=== PATIENT | female | born 1930 | race African-American/Black ===

== ENCOUNTER 2017-05-23 13:04 | Inpatient (IN) | payer MEDICARE, OTHER ==
[~2017-05-23] VITALS: Ht 157.5 cm; Wt 77.6 kg
[~2017-05-23 13:04] MED LIST: AMLO5TAB4 PO; FURO-152 PO; LEVO175T7 PO; METO50TA5 PO; MONT10TA21 PO; MULT-1146 PO; RIVA20TA PO
[2017-05-23 14:29] LABS: BASOPHILS % 1.4 % (0.0-2.0); EOSINOPHILS % 5.5 % (0.0-5.0); HEMATOCRIT. 31.6 % (36.0-48.0); HEMOGLOBIN. 10.3 g/dL (12.0-16.0); LYMPHOCYTES % 23.6 % (20.0-50.0); MEAN CORPUSCULAR HEMOGLOBIN 30.5 pg (28.0-32.0); MEAN CORPUSCULAR VOLUME 93.7 fL (81.0-99.0); MEAN PLATELET VOLUME 9.7 fl (7.4-10.4); MONOCYTES % 8.6 % (2.0-8.0); NEUTROPHILS % 60.9 % (40.0-76.0); PLATELET 171 x1000/uL (130-400); RED BLOOD CELL COUNT 3.37 mill/uL (4.2-5.4); RED CELL DISTRIBUTION WIDTH 16.2 % (11.6-14.6)
[2017-05-23 14:30] LABS: INR 1.1
[2017-05-23 14:33] LABS: CARBON DIOXIDE 25 mEq/L (21-32); CHLORIDE 106 mEq/L (98-107)
[2017-05-23 14:35] LABS: TROPONIN I < 0.02 ng/mL (0.00-0.04)
[2017-05-23] MEDS ORDERED: FUROSEMIDE 20MG/2ML VIAL IVP ONE (17:15)
[2017-05-23] MEDS ORDERED: ASPIRIN 81MG TABLET PO ONE (17:15)
[2017-05-23 17:38] LABS: BG BASE EXCESS -1.1 mmol/L (-2.0-2.0); BG CARBOXYHEMOGLOBIN 0.2 % (0.5-1.5); BG DEOXYHEMOGLOBIN 3.1 % (0.0-5.0); BG FRACTION INSPIRED OXYGEN 28; BG HCO3 ACT 24.5 mmol/L (22.0-26.0); BG METHEMOGLOBIN 0.3 % (0.0-1.5); BG OXYGEN SATURATION 96.9 % (92.0-98.5); BG OXYHEMOGLOBIN 96.4 % (94.0-97.0); BG PCO2 44.6 mmHg (35.0-45.0); BG PH 7.357 (7.350-7.450); BG PO2 98.5 mmHg (75.0-100.0); BG SAMPLE SITE RIGHT RADIAL; BG TOTAL HEMOGLOBIN 10.7 g/dL (12.0-18.0); BG VENT MODE NASAL CANNULA
[2017-05-23 22:00] VITALS: BP 152/80
[2017-05-23 23:37] VITALS: BP 152/80
[2017-05-24] VITALS: BP 144/61
[2017-05-24] MEDS ORDERED: DOCUSATE SODIUM 100MG CAPSULE PO PRN (00:15)
[2017-05-24] MEDS ORDERED: MAGNESIUM/ALUMINUM HYDROXIDE/SIMETHICONE 30ML UDC PO PRN (00:15)
[2017-05-24] MEDS ORDERED: IPRATROPIUM/ALBUTEROL 0.5-3(2.5)MG/3ML NEB INH PRN (00:15)
[2017-05-24] MEDS ORDERED: DIPHENHYDRAMINE 50MG/ML VIAL IV PRN (00:15)
[2017-05-24] MEDS ORDERED: CLONIDINE 0.1MG TABLET PO PRN (00:15)
[2017-05-24] MEDS ORDERED: NA PHOS,M-B/NA PHOS,DI-BA ENEMA 118ML PR PRN (00:15)
[2017-05-24] MEDS ORDERED: ACETAMINOPHEN 325MG TABLET PO PRN (00:15)
[2017-05-24] MEDS ORDERED: ACETAMINOPHEN 650MG SUPP PR PRN (00:15)
[2017-05-24] MEDS ORDERED: ONDANSETRON HCL 4MG/2ML VIAL IV PRN (00:15)
[2017-05-24] MEDS ORDERED: GUAIFENESIN 200MG/10ML SUGAR FREE UDC PO PRN (00:15)
[2017-05-24] MEDS ORDERED: ENOXAPARIN 40MG/0.4ML SYR SUBCUT SCH (00:15)
[2017-05-24] MEDS ORDERED: ACETAMINOPHEN 650MG/20.3ML UDC GT PRN (00:15)
[2017-05-24] MEDS: IPRATROPIUM/ALBUTEROL 0.5-3(2.5)MG/3ML NEB HHN SCH ×6 (00:48→20:53)
[2017-05-24 04:00] VITALS: BP 122/69
[2017-05-24] MEDS: SODIUM CHLORIDE 0.9% INJ 3ML FLUSH IVF SCH ×3 (05:13→21:50)
[2017-05-24 07:18] LABS: CREATINE KINASE 115 IU/L (26-192); TROPONIN I < 0.02 ng/mL (0.00-0.04)
[2017-05-24 08:00] VITALS: BP 143/52
[2017-05-24] MEDS: ENOXAPARIN 30MG/0.3ML SYR SUBCUT SCH ×2 (09:00→21:56)
[2017-05-24] MEDS: FUROSEMIDE 40MG/4ML VIAL IV SCH ×2 (09:29→21:50)
[2017-05-24] MEDS ORDERED: PNEUMOCOCCAL 23-VAL P-SAC VAC 0.5 ML IM ONE (11:15)
[2017-05-24 12:07] VITALS: BP 124/41
[2017-05-24] MEDS: HYDROCODONE/ACETAMINOPHEN 5/325MG TABLET PO PRN (15:18)
[2017-05-24 16:27] VITALS: BP 113/52
[2017-05-24 17:05] LABS: CREATINE KINASE 116 IU/L (26-192); TROPONIN I < 0.02 ng/mL (0.00-0.04)
[2017-05-24 18:55] LABS: CLARITY URINE CLEAR (CLEAR); COLOR URINE YELLOW (YELLOW); GLUCOSE URINE NEGATIVE (NEGATIVE); KETONES URINE NEGATIVE (NEGATIVE); LEUKOCYTE ESTERASE URINE NEGATIVE (NEGATIVE); NITRITE URINE NEGATIVE (NEGATIVE); OCCULT BLOOD URINE NEGATIVE (NEGATIVE); PH URINE 5.5 (4.5-8.0); PROTEIN URINE NEGATIVE (NEGATIVE); SPECIFIC GRAVITY URINE 1.009 (1.005-1.030); UROBILINOGEN URINE 0.2 E.U./dL (0.2-1.0)
[2017-05-24 19:08] LABS: *AMPHETAMINES SCREEN URINE NEGATIVE (NEGATIVE); *BARBITURATES SCREEN URINE NEGATIVE (NEGATIVE); *BENZODIAZEPINES SCREEN URINE NEGATIVE (NEGATIVE); *COCAINE SCREEN URINE NEGATIVE (NEGATIVE); CANNABINOID URINE SCREEN NEGATIVE (NEGATIVE); METHADONE URINE SCREEN NEGATIVE (NEGATIVE); OPIATES URINE SCREEN NEGATIVE (NEGATIVE); PHENCYCLIDINE URINE SCREEN NEGATIVE (NEGATIVE)
[2017-05-24 20:00] VITALS: BP 91/50
[2017-05-24 20:13] LABS: BASOPHILS % 0.9 % (0.0-2.0); EOSINOPHILS % 1.1 % (0.0-5.0); HEMATOCRIT. 29.5 % (36.0-48.0); HEMOGLOBIN. 9.6 g/dL (12.0-16.0); MEAN CORPUSCULAR HEMOGLOBIN 30.4 pg (28.0-32.0); MEAN CORPUSCULAR VOLUME 92.8 fL (81.0-99.0); MEAN PLATELET VOLUME 10.3 fl (7.4-10.4); MONOCYTES % 13.1 % (2.0-8.0); NEUTROPHILS % 73.9 % (40.0-76.0); PLATELET 137 x1000/uL (130-400); RED BLOOD CELL COUNT 3.18 mill/uL (4.2-5.4); RED CELL DISTRIBUTION WIDTH 16.5 % (11.6-14.6)
[2017-05-24 23:26] LABS: BASOPHILS % 0.8 % (0.0-2.0); EOSINOPHILS % 0.5 % (0.0-5.0); HEMATOCRIT. 28.1 % (36.0-48.0); HEMOGLOBIN. 9.3 g/dL (12.0-16.0); LYMPHOCYTES % 12.1 % (20.0-50.0); MEAN CORPUSCULAR HEMOGLOBIN 30.6 pg (28.0-32.0); MEAN CORPUSCULAR VOLUME 92.6 fL (81.0-99.0); MEAN PLATELET VOLUME 10.2 fl (7.4-10.4); MONOCYTES % 8.4 % (2.0-8.0); NEUTROPHILS % 78.2 % (40.0-76.0); PLATELET 146 x1000/uL (130-400); RED BLOOD CELL COUNT 3.03 mill/uL (4.2-5.4); RED CELL DISTRIBUTION WIDTH 16.2 % (11.6-14.6)
[2017-05-24 23:39] LABS: CARBON DIOXIDE 25 mEq/L (21-32); CHLORIDE 100 mEq/L (98-107)
[2017-05-25] VITALS: BP 105/43
[2017-05-25] MEDS: IPRATROPIUM/ALBUTEROL 0.5-3(2.5)MG/3ML NEB HHN SCH ×6 (00:01→20:48)
[2017-05-25 04:00] VITALS: BP 105/31
[2017-05-25] MEDS: SODIUM CHLORIDE 0.9% INJ 3ML FLUSH IVF SCH ×3 (05:17→22:03)
[2017-05-25 08:00] VITALS: BP 155/85
[2017-05-25] MEDS: FUROSEMIDE 40MG/4ML VIAL IV SCH (08:54)
[2017-05-25] MEDS: ENOXAPARIN 30MG/0.3ML SYR SUBCUT SCH (08:55)
[2017-05-25 12:00] VITALS: BP 130/53
[2017-05-25] MEDS: COLCHICINE 0.6MG TABLET PO SCH ×2 (14:05→17:24)
[2017-05-25 15:40] LABS: BASOPHILS % 0.4 % (0.0-2.0); EOSINOPHILS % 0.4 % (0.0-5.0); HEMATOCRIT. 30.5 % (36.0-48.0); HEMOGLOBIN. 10.1 g/dL (12.0-16.0); LYMPHOCYTES % 12.4 % (20.0-50.0); MEAN CORPUSCULAR HEMOGLOBIN 30.3 pg (28.0-32.0); MEAN CORPUSCULAR VOLUME 91.7 fL (81.0-99.0); MEAN PLATELET VOLUME 10.1 fl (7.4-10.4); MONOCYTES % 12.9 % (2.0-8.0); NEUTROPHILS % 73.9 % (40.0-76.0); PLATELET 147 x1000/uL (130-400); RED BLOOD CELL COUNT 3.33 mill/uL (4.2-5.4); RED CELL DISTRIBUTION WIDTH 16.5 % (11.6-14.6)
[2017-05-25 16:00] VITALS: BP 120/62
[2017-05-25] MEDS ORDERED: RIVAROXABAN 20 MG TABLET PO SCH (18:45)
[2017-05-25] MEDS ORDERED: AMLODIPINE 5MG TABLET PO SCH (18:45)
[2017-05-25] MEDS ORDERED: LEVOTHYROXINE SODIUM 175MCG TABLET PO SCH (19:00)
[2017-05-25 20:00] VITALS: BP 134/65
[2017-05-25] MEDS: METOPROLOL TARTRATE 50MG TABLET PO SCH (22:02)
[2017-05-25] MEDS: MONTELUKAST SODIUM 10MG TABLET PO SCH (22:03)
[2017-05-25] MEDS: HYDROCODONE/ACETAMINOPHEN 5/325MG TABLET PO PRN (23:40)
[2017-05-26] VITALS: BP 101/37
[2017-05-26] MEDS: IPRATROPIUM/ALBUTEROL 0.5-3(2.5)MG/3ML NEB HHN SCH ×6 (00:59→20:44)
[2017-05-26 04:00] VITALS: BP 104/50
[2017-05-26] MEDS: SODIUM CHLORIDE 0.9% INJ 3ML FLUSH IVF SCH ×3 (06:40→21:27)
[2017-05-26 06:56] LABS: BASOPHILS % 0.9 % (0.0-2.0); EOSINOPHILS % 1.8 % (0.0-5.0); HEMATOCRIT. 29.9 % (36.0-48.0); HEMOGLOBIN. 9.9 g/dL (12.0-16.0); LYMPHOCYTES % 19.9 % (20.0-50.0); MEAN CORPUSCULAR HEMOGLOBIN 30.4 pg (28.0-32.0); MEAN CORPUSCULAR VOLUME 92.1 fL (81.0-99.0); MEAN PLATELET VOLUME 10.2 fl (7.4-10.4); MONOCYTES % 14.2 % (2.0-8.0); NEUTROPHILS % 63.2 % (40.0-76.0); PLATELET 140 x1000/uL (130-400); RED BLOOD CELL COUNT 3.25 mill/uL (4.2-5.4); RED CELL DISTRIBUTION WIDTH 16.6 % (11.6-14.6)
[2017-05-26 07:41] LABS: CARBON DIOXIDE 26 mEq/L (21-32); CHLORIDE 98 mEq/L (98-107); PHOSPHORUS 4.2 mg/dL (2.5-4.9); TOTAL IRON BINDING CAPACITY 294 ug/dL (250-450)
[2017-05-26 08:00] VITALS: BP 119/50
[2017-05-26] MEDS ORDERED: ENOXAPARIN 40MG/0.4ML SYR SUBCUT SCH (09:00)
[2017-05-26] MEDS: IRON SUCROSE COMPLEX 100 MG/5 ML ML IV SCH (09:17)
[2017-05-26] MEDS: COLCHICINE 0.6MG TABLET PO SCH (09:18)
[2017-05-26] MEDS: FAMOTIDINE 20MG TABLET PO SCH (09:19)
[2017-05-26] MEDS: METOPROLOL TARTRATE 50MG TABLET PO SCH ×2 (09:19→21:00)
[2017-05-26] MEDS ORDERED: MAGNESIUM 2 G PREMIX 50 ML IV SCH (09:30)
[2017-05-26 12:00] VITALS: BP 119/51
[2017-05-26] MEDS: HYDROCODONE/ACETAMINOPHEN 5/325MG TABLET PO PRN (15:12)
[2017-05-26 16:00] VITALS: BP 106/55
[2017-05-26] MEDS ORDERED: FUROSEMIDE 20MG TABLET PO SCH (17:00)
[2017-05-26] MEDS: RIVAROXABAN 15 MG TABLET PO SCH (17:59)
[2017-05-26 20:00] VITALS: BP 107/41
[2017-05-26] MEDS: MONTELUKAST SODIUM 10MG TABLET PO SCH (21:27)
[2017-05-27] VITALS: BP 96/48
[2017-05-27] MEDS: IPRATROPIUM/ALBUTEROL 0.5-3(2.5)MG/3ML NEB HHN SCH ×6 (00:31→20:46)
[2017-05-27 04:00] VITALS: BP 110/51
[2017-05-27 05:40] LABS: BASOPHILS % 0.9 % (0.0-2.0); EOSINOPHILS % 3.3 % (0.0-5.0); HEMATOCRIT. 28.5 % (36.0-48.0); HEMOGLOBIN. 9.4 g/dL (12.0-16.0); LYMPHOCYTES % 24.4 % (20.0-50.0); MEAN CORPUSCULAR HEMOGLOBIN 30.5 pg (28.0-32.0); MEAN CORPUSCULAR VOLUME 92.4 fL (81.0-99.0); MEAN PLATELET VOLUME 10.5 fl (7.4-10.4); MONOCYTES % 12.2 % (2.0-8.0); NEUTROPHILS % 59.2 % (40.0-76.0); PLATELET 132 x1000/uL (130-400); RED BLOOD CELL COUNT 3.09 mill/uL (4.2-5.4); RED CELL DISTRIBUTION WIDTH 16.6 % (11.6-14.6)
[2017-05-27] MEDS: SODIUM CHLORIDE 0.9% INJ 3ML FLUSH IVF SCH ×3 (06:31→20:45)
[2017-05-27 06:34] LABS: CARBON DIOXIDE 24 mEq/L (21-32); CHLORIDE 97 mEq/L (98-107); PHOSPHORUS 4.8 mg/dL (2.5-4.9)
[2017-05-27 08:00] VITALS: BP 125/56
[2017-05-27] MEDS ORDERED: SODIUM CHLORIDE 0.9% 500 ML IV ONE (09:15)
[2017-05-27] MEDS: FAMOTIDINE 20MG TABLET PO SCH (11:28)
[2017-05-27] MEDS: COLCHICINE 0.6MG TABLET PO SCH (11:29)
[2017-05-27] MEDS: METOPROLOL TARTRATE 50MG TABLET PO SCH ×2 (11:29→20:45)
[2017-05-27] MEDS: IRON SUCROSE COMPLEX 100 MG/5 ML ML IV SCH (11:33)
[2017-05-27] MEDS: METHYLPREDNISOLONE SOD SUCC 40 MG/ML VIAL IV SCH (11:34)
[2017-05-27 12:00] VITALS: BP 118/52
[2017-05-27 16:00] VITALS: BP 122/50
[2017-05-27] MEDS: RIVAROXABAN 15 MG TABLET PO SCH (17:35)
[2017-05-27 20:00] VITALS: BP 139/49
[2017-05-27] MEDS: MONTELUKAST SODIUM 10MG TABLET PO SCH (20:44)
[2017-05-28] VITALS: BP 126/46
[2017-05-28] MEDS: IPRATROPIUM/ALBUTEROL 0.5-3(2.5)MG/3ML NEB HHN SCH ×6 (00:43→21:28)
[2017-05-28 04:00] VITALS: BP 123/49
[2017-05-28] MEDS: LEVOTHYROXINE SODIUM 200MCG TABLET PO SCH ×2 (06:45→07:05)
[2017-05-28] MEDS: SODIUM CHLORIDE 0.9% INJ 3ML FLUSH IVF SCH ×3 (07:05→22:41)
[2017-05-28 07:55] LABS: BASOPHILS % 0.7 % (0.0-2.0); EOSINOPHILS % 0.3 % (0.0-5.0); HEMATOCRIT. 28.2 % (36.0-48.0); HEMOGLOBIN. 9.4 g/dL (12.0-16.0); LYMPHOCYTES % 10.1 % (20.0-50.0); MEAN CORPUSCULAR HEMOGLOBIN 30.8 pg (28.0-32.0); MEAN CORPUSCULAR VOLUME 92.6 fL (81.0-99.0); MONOCYTES % 5.2 % (2.0-8.0); NEUTROPHILS % 83.7 % (40.0-76.0); PLATELET 162 x1000/uL (130-400); RED BLOOD CELL COUNT 3.05 mill/uL (4.2-5.4); RED CELL DISTRIBUTION WIDTH 16.2 % (11.6-14.6)
[2017-05-28 08:11] VITALS: BP 143/78
[2017-05-28] MEDS: IRON SUCROSE COMPLEX 100 MG/5 ML ML IV SCH (08:20)
[2017-05-28] MEDS: METHYLPREDNISOLONE SOD SUCC 40 MG/ML VIAL IV SCH ×3 (08:20→22:39)
[2017-05-28] MEDS: COLCHICINE 0.6MG TABLET PO SCH (08:20)
[2017-05-28] MEDS: FAMOTIDINE 20MG TABLET PO SCH (08:20)
[2017-05-28] MEDS: METOPROLOL TARTRATE 50MG TABLET PO SCH ×2 (08:21→22:40)
[2017-05-28 08:40] LABS: PHOSPHORUS 3.4 mg/dL (2.5-4.9)
[2017-05-28 12:00] VITALS: BP 133/74
[2017-05-28 16:00] VITALS: BP 119/59
[2017-05-28] MEDS: RIVAROXABAN 15 MG TABLET PO SCH (16:42)
[2017-05-28 19:12] LABS: ANTI-NUCLEAR ANTIBODIES DIRECT Negative (Negative)
[2017-05-28 20:00] VITALS: BP 125/56
[2017-05-28] MEDS: MONTELUKAST SODIUM 10MG TABLET PO SCH (22:40)
[2017-05-29] VITALS: BP 124/43
[2017-05-29] MEDS: IPRATROPIUM/ALBUTEROL 0.5-3(2.5)MG/3ML NEB HHN SCH ×4 (01:22→12:35)
[2017-05-29 04:00] VITALS: BP 155/58
[2017-05-29] MEDS: LEVOTHYROXINE SODIUM 200MCG TABLET PO SCH (06:35)
[2017-05-29] MEDS: SODIUM CHLORIDE 0.9% INJ 3ML FLUSH IVF SCH ×2 (06:35→14:00)
[2017-05-29] MEDS: METHYLPREDNISOLONE SOD SUCC 40 MG/ML VIAL IV SCH (06:35)
[2017-05-29 08:00] VITALS: BP 127/52
[2017-05-29] MEDS: COLCHICINE 0.6MG TABLET PO SCH (09:33)
[2017-05-29] MEDS: METOPROLOL TARTRATE 50MG TABLET PO SCH (09:33)
[2017-05-29] MEDS: FAMOTIDINE 20MG TABLET PO SCH (09:34)
[2017-05-29 12:00] VITALS: BP 122/52
[2017-05-29 13:58] VITALS: BP 118/65
[2017-05-30 13:09] LABS: ANGIOTENSION CONVERTING ENZYME 37 U/L (14-82); ANTI-MYELOPEROXIDASE AB < 9.0 U/mL (0.0-9.0); ANTI-PROTEINASE 3 ABS < 3.5 U/mL (0.0-3.5)
[2017-06-01 13:12] LABS: ATYPICAL P-ANCA <1:20 titer (Neg:<1:20); CYTOPLASMIC C-ANCA <1:20 titer (Neg:<1:20); PERINUCLEAR P-ANCA <1:20 titer (Neg:<1:20)
== END 2017-05-29 15:10 | disposition home or self-care (01) | DRG 291 ==
LOC: ER 15:40 → 5WST 17:14 → SUPCPDRO 19:09 → ENRESERV 21:09
PROVIDERS: ADMIT Family Medicine; ATTEND Family Medicine
DX: I13.0 Hypertensive heart and chronic kidney disease with heart failure and stage 1 through stage 4 chronic kidney disease, or unspecified chronic kidney disease (principal); J96.00 Acute respiratory failure, unspecified whether with hypoxia or hypercapnia; N17.9 Acute kidney failure, unspecified; J44.9 Chronic obstructive pulmonary disease, unspecified; E83.42 Hypomagnesemia; I27.2 Other secondary pulmonary hypertension; I50.33 Acute on chronic diastolic (congestive) heart failure; I48.2 Chronic atrial fibrillation; E03.9 Hypothyroidism, unspecified; D50.9 Iron deficiency anemia, unspecified; E66.9 Obesity, unspecified; I73.9 Peripheral vascular disease, unspecified; M06.9 Rheumatoid arthritis, unspecified; E05.90 Thyrotoxicosis, unspecified without thyrotoxic crisis or storm; M10.9 Gout, unspecified; M17.0 Bilateral primary osteoarthritis of knee; N18.9 Chronic kidney disease, unspecified; Z68.31 Body mass index [BMI] 31.0-31.9, adult; Z79.899 Other long term (current) drug therapy; Z79.01 Long term (current) use of anticoagulants; Z74.01 Bed confinement status; Z95.0 Presence of cardiac pacemaker; Z98.42 Cataract extraction status, left eye; Z98.41 Cataract extraction status, right eye; Z87.891 Personal history of nicotine dependence
CPT/HCPCS: 36415; 36600; 71010; 76770; 80048; 80053; 80305; 81003; 82164; 82375; 82550; 82805; 83520; 83540; 83550; 83735; 83880; 84100; 84443; 84484; 84550; 85025; 85610; 85651; 86038; 86140; 86256; 86431; 93005; 93306; 93970; 94640; 94664; 97162; 97530; 99285; A6261; J1650; J1940; J2920; J3475; J7040; J7620

== ENCOUNTER 2018-02-13 15:19 | Emergency (ER) | payer MEDICARE, OTHER ==
[~2018-02-13] VITALS: Ht 152.4 cm; Wt 72.0 kg
[~2018-02-13 15:19] MED LIST changes: +METO-539 PO; -METO50TA5 PO
[2018-02-13 16:21] LABS: HEMATOCRIT. 30.9 % (36.0-48.0); HEMOGLOBIN. 10.5 g/dL (12.0-16.0); MEAN CORPUSCULAR HEMOGLOBIN 35.6 pg (28.0-32.0); MEAN CORPUSCULAR VOLUME 104.8 fL (81.0-99.0); MEAN PLATELET VOLUME 9.4 fl (7.4-10.4); PLATELET 128 x1000/uL (130-400); RED BLOOD CELL COUNT 2.95 mill/uL (4.2-5.4); RED CELL DISTRIBUTION WIDTH 16.3 % (11.6-14.6)
[2018-02-13 16:28] LABS: PROTHROMBIN TIME 10.8 sec (9.4-11.6)
[2018-02-13 16:29] LABS: CHLORIDE 107 mEq/L (98-107)
[2018-02-13 16:40] LABS: PLATELET ESTIMATE SLIGHTLY DECREASED
[2018-02-13 16:57] LABS: CLARITY URINE CLOUDY (CLEAR); COLOR URINE YELLOW (YELLOW); KETONES URINE NEGATIVE (NEGATIVE); LEUKOCYTE ESTERASE URINE NEGATIVE (NEGATIVE); NITRITE URINE NEGATIVE (NEGATIVE); OCCULT BLOOD URINE NEGATIVE (NEGATIVE); PROTEIN URINE NEGATIVE (NEGATIVE); UROBILINOGEN URINE 0.2 E.U./dL (0.2-1.0)
[2018-02-13] MEDS ORDERED: DIPHENHYDRAMINE 50MG/ML VIAL IV ONE (17:30)
[2018-02-13 19:54] VITALS: BP 128/75
== END 2018-02-13 20:01 | disposition home or self-care (01) ==
LOC: ER 17:10
DX: R60.0 Localized edema (principal); L29.2 Pruritus vulvae; I11.0 Hypertensive heart disease with heart failure; I50.9 Heart failure, unspecified; J44.9 Chronic obstructive pulmonary disease, unspecified; E05.90 Thyrotoxicosis, unspecified without thyrotoxic crisis or storm; I25.10 Atherosclerotic heart disease of native coronary artery without angina pectoris; R06.02 Shortness of breath
CPT/HCPCS: 36415; 80053; 81003; 83880; 84484; 85025; 85610; 93970; 96374; 99285; J1200; J7030

== ENCOUNTER 2018-06-19 14:38 | Emergency (ER) | payer MEDICARE, OTHER ==
[~2018-06-19] VITALS: Ht 152.4 cm; Wt 59.0 kg
[2018-06-19] MEDS ORDERED: SODIUM CHLORIDE 0.9% 1,000 ML IV ONE (15:32)
[2018-06-19 16:47] LABS: CHLORIDE 109 mEq/L (98-107)
[2018-06-19 16:57] LABS: BASOPHILS % 0.9 % (0.0-2.0); EOSINOPHILS % 4.2 % (0.0-5.0); HEMATOCRIT. 28.6 % (36.0-48.0); HEMOGLOBIN. 9.6 g/dL (12.0-16.0); LYMPHOCYTES % 21.6 % (20.0-50.0); MEAN CORPUSCULAR HEMOGLOBIN 34.5 pg (28.0-32.0); MEAN CORPUSCULAR VOLUME 102.8 fL (81.0-99.0); MEAN PLATELET VOLUME 10.3 fl (7.4-10.4); NEUTROPHILS % 61.3 % (40.0-76.0); PLATELET 113 x1000/uL (130-400); RED BLOOD CELL COUNT 2.78 mill/uL (4.2-5.4); RED CELL DISTRIBUTION WIDTH 14.8 % (11.6-14.6)
[2018-06-19 17:01] LABS: INR 1.4; PROTHROMBIN TIME 14.4 sec (9.1-11.1)
[2018-06-19 18:56] VITALS: BP 127/44
== END 2018-06-19 21:56 | disposition home or self-care (01) ==
LOC: ER 14:38
DX: R19.7 Diarrhea, unspecified (principal); K62.5 Hemorrhage of anus and rectum; I10 Essential (primary) hypertension
CPT/HCPCS: 36415; 80053; 85025; 85610; 96360; 96361; 99285; J7030

== ENCOUNTER 2018-10-11 11:38 | Inpatient (IN) | payer MEDICARE, OTHER ==
[~2018-10-11] VITALS: Ht 152.4 cm; Wt 54.4 kg
[2018-10-11] MEDS ORDERED: VANCOMYCIN 1 G PREMIX 200 ML IV ONE (12:00)
[2018-10-11] MEDS ORDERED: PIPERACILLIN/TAZ 3.375G PREMIX 50 ML IV ONE (12:00)
[2018-10-11 13:26] LABS: CHLORIDE 106 mEq/L (98-107)
[2018-10-11 13:31] LABS: INR 1.6; PARTIAL THROMBOPLASTIN TIME 67.2 sec (23.4-31.0); PROTHROMBIN TIME 15.5 sec (9.1-11.1)
[2018-10-11 13:32] LABS: EOSINOPHILS % 4.2 % (0.0-5.0); HEMATOCRIT. 23.9 % (36.0-48.0); HEMOGLOBIN. 7.9 g/dL (12.0-16.0); LYMPHOCYTES % 21.4 % (20.0-50.0); MEAN CORPUSCULAR HEMOGLOBIN 34.1 pg (28.0-32.0); MEAN CORPUSCULAR VOLUME 102.7 fL (81.0-99.0); MEAN PLATELET VOLUME 8.4 fl (7.4-10.4); MONOCYTES % 2.9 % (2.0-8.0); NEUTROPHILS % 70.5 % (40.0-76.0); PLATELET 218 x1000/uL (130-400); RED BLOOD CELL COUNT 2.33 mill/uL (4.2-5.4); RED CELL DISTRIBUTION WIDTH 16.9 % (11.6-14.6)
[2018-10-11] MEDS ORDERED: POTASSIUM CHLORIDE 20MEQ TABLET SR PO ONE (14:00)
[2018-10-11 14:35] VITALS: BP 111/66
[2018-10-11 16:00] VITALS: BP 99/52
[2018-10-11] MEDS ORDERED: ALLO100T PO (16:03)
[2018-10-11] MEDS ORDERED: DOCUSATE SODIUM 100MG CAPSULE PO PRN (16:15)
[2018-10-11] MEDS ORDERED: NA PHOS,M-B/NA PHOS,DI-BA ENEMA 118ML PR PRN (16:15)
[2018-10-11] MEDS ORDERED: LORAZEPAM 2MG/ML CPJ IV PRN (16:15)
[2018-10-11] MEDS ORDERED: ACETAMINOPHEN 325MG TABLET PO PRN (16:15)
[2018-10-11] MEDS ORDERED: HYDROMORPHONE HCL/PF 2MG/ML CPJ IV PRN (16:15)
[2018-10-11] MEDS ORDERED: ONDANSETRON HCL 4MG/2ML INJ IV PRN (16:15)
[2018-10-11] MEDS ORDERED: CLONIDINE 0.1MG TABLET PO PRN (16:15)
[2018-10-11] MEDS ORDERED: IPRATROPIUM/ALBUTEROL 0.5-3(2.5)MG/3ML NEB INH PRN (16:15)
[2018-10-11] MEDS ORDERED: MAGNESIUM/ALUMINUM HYDROXIDE/SIMETHICONE 30ML UDC PO PRN (16:15)
[2018-10-11] MEDS ORDERED: GUAIFENESIN 200MG/10ML SUGAR FREE UDC PO PRN (16:15)
[2018-10-11] MEDS ORDERED: HYDROCODONE/ACETAMINOPHEN 5/325MG TABLET PO PRN (16:15)
[2018-10-11] MEDS ORDERED: DIPHENHYDRAMINE 50MG/ML VIAL IV PRN (16:15)
[2018-10-11] MEDS ORDERED: VANCOMYCIN 1 G PREMIX 200 ML IV NR ×2 (17:00→18:00)
[2018-10-11 17:58] LABS: CHLORIDE 107 mEq/L (98-107)
[2018-10-11] MEDS: SODIUM CHLORIDE 0.45% 1,000 ML IV SCH (17:58)
[2018-10-11 20:00] VITALS: BP 112/45
[2018-10-11] MEDS: METOPROLOL TARTRATE 25MG TABLET PO SCH (20:41)
[2018-10-11] MEDS ORDERED: ENOXAPARIN 30MG/0.3ML SYR SUBCUT SCH (21:00)
[2018-10-11 23:48] LABS: CLARITY URINE CLOUDY (CLEAR); COLOR URINE DARK YELLOW (YELLOW); KETONES URINE TRACE (NEGATIVE); LEUKOCYTE ESTERASE URINE 2+ (NEGATIVE); NITRITE URINE NEGATIVE (NEGATIVE); OCCULT BLOOD URINE NEGATIVE (NEGATIVE); PROTEIN URINE 1+ (NEGATIVE); SPECIFIC GRAVITY URINE 1.025 (1.005-1.030)
[2018-10-12] VITALS (13 sets, daily range): BP systolic 95–128; BP diastolic 35–48
[2018-10-12 07:53] LABS: EOSINOPHILS % 3.9 % (0.0-5.0); LYMPHOCYTES % 17.3 % (20.0-50.0); MEAN CORPUSCULAR HEMOGLOBIN 34.6 pg (28.0-32.0); MEAN CORPUSCULAR VOLUME 105.3 fL (81.0-99.0); MONOCYTES % 5.8 % (2.0-8.0); PLATELET 170 x1000/uL (130-400); RED BLOOD CELL COUNT 1.91 mill/uL (4.2-5.4); RED CELL DISTRIBUTION WIDTH 16.8 % (11.6-14.6)
[2018-10-12 08:12] LABS: HEMATOCRIT. 20.1 % (36.0-48.0); HEMOGLOBIN. 6.6 g/dL (12.0-16.0)
[2018-10-12 08:30] LABS: CHLORIDE 107 mEq/L (98-107)
[2018-10-12 08:45] LABS: LDL CHOLESTEROL 127 mg/dL (5-100)
[2018-10-12 08:46] LABS: T4 FREE 1.93 ng/dL (0.76-1.46)
[2018-10-12 08:47] LABS: HDL CHOLESTEROL 24 mg/dL (40-59)
[2018-10-12] MEDS: METOPROLOL TARTRATE 25MG TABLET PO SCH ×2 (08:48→20:19)
[2018-10-12] MEDS ORDERED: ASPIRIN 81MG EC TABLET PO SCH (09:00)
[2018-10-12] MEDS ORDERED: VANCOMYCIN 500 MG PREMIX 100 ML IV SCH ×2 (12:00→21:00)
[2018-10-12 13:15] LABS: BASOPHILS % 1.2 % (0.0-2.0); EOSINOPHILS % 2.9 % (0.0-5.0); LYMPHOCYTES % 16.8 % (20.0-50.0); MEAN CORPUSCULAR HEMOGLOBIN 34.2 pg (28.0-32.0); MEAN CORPUSCULAR VOLUME 101.9 fL (81.0-99.0); MEAN PLATELET VOLUME 8.3 fl (7.4-10.4); MONOCYTES % 8.1 % (2.0-8.0); PLATELET 188 x1000/uL (130-400); RED BLOOD CELL COUNT 1.79 mill/uL (4.2-5.4); RED CELL DISTRIBUTION WIDTH 16.6 % (11.6-14.6)
[2018-10-12 13:36] LABS: HEMOGLOBIN. 6.1 g/dL (12.0-16.0)
[2018-10-12 13:37] LABS: HEMATOCRIT. 18.3 % (36.0-48.0)
[2018-10-12] MEDS ORDERED: LIDOCAINE HCL/EPINEPHRINE 1%-EPI 1:100,000 20 ML VIAL INFIL SCH (15:30)
[2018-10-12] MEDS ORDERED: SODIUM HYPOCHLORITE 0.125% 473ML SOLUTION TOP SCH (16:00)
[2018-10-12] MEDS: SODIUM CHLORIDE 0.45% 1,000 ML IV SCH (16:05)
[2018-10-12] MEDS ORDERED: SODIUM HYPOCHLORITE (0.25%) 480ML SOLUTION (HALF STRENGTH) TOP SCH (20:00)
[2018-10-12] MEDS: SODIUM HYPOCHLORITE 0.125% 473ML SOLUTION TOP SCH (20:20)
[2018-10-12] MEDS ORDERED: LEVOFLOXACIN 500MG PREMIX 100 ML IV NR (22:00)
[2018-10-13] VITALS: BP 123/48
[2018-10-13 00:50] VITALS: BP 120/52
[2018-10-13 02:15] LABS: HEMATOCRIT 27.2 % (36.0-48.0); HEMOGLOBIN 9.1 g/dL (12.0-16.0)
[2018-10-13 04:00] VITALS: BP 124/54
[2018-10-13 08:00] VITALS: BP 111/48
[2018-10-13] MEDS: SODIUM HYPOCHLORITE 0.125% 473ML SOLUTION TOP SCH (09:00)
[2018-10-13] MEDS: METOPROLOL TARTRATE 25MG TABLET PO SCH ×2 (09:00→21:05)
[2018-10-13 09:43] LABS: BASOPHILS % 0.6 % (0.0-2.0); HEMATOCRIT. 26.4 % (36.0-48.0); LYMPHOCYTES % 25.9 % (20.0-50.0); MEAN CORPUSCULAR HEMOGLOBIN 32.2 pg (28.0-32.0); MEAN CORPUSCULAR VOLUME 94.8 fL (81.0-99.0); MEAN PLATELET VOLUME 8.3 fl (7.4-10.4); MONOCYTES % 8.7 % (2.0-8.0); NEUTROPHILS % 60.8 % (40.0-76.0); PLATELET 165 x1000/uL (130-400); RED BLOOD CELL COUNT 2.78 mill/uL (4.2-5.4); RED CELL DISTRIBUTION WIDTH 19.8 % (11.6-14.6)
[2018-10-13 09:51] LABS: CHLORIDE 104 mEq/L (98-107)
[2018-10-13] MEDS ORDERED: KCL 20MEQ/100ML PREMIX 100 ML IV NR (11:00)
[2018-10-13 12:00] VITALS: BP 126/51
[2018-10-13] MEDS: VANCOMYCIN 500 MG PREMIX 100 ML IV SCH (16:27)
[2018-10-13] MEDS: SODIUM CHLORIDE 0.45% 1,000 ML IV SCH (16:27)
[2018-10-13 20:00] VITALS: BP 121/70
[2018-10-13] MEDS: LEVOFLOXACIN 250MG PREMIX 50 ML IV SCH (21:06)
[2018-10-14] VITALS: BP 124/52
[2018-10-14] MEDS: VANCOMYCIN 500 MG PREMIX 100 ML IV SCH ×2 (00:16→13:59)
[2018-10-14 04:00] VITALS: BP 103/56
[2018-10-14 06:33] LABS: CHLORIDE 109 mEq/L (98-107)
[2018-10-14 06:42] LABS: TOTAL IRON BINDING CAPACITY 133 ug/dL (250-450)
[2018-10-14 06:47] LABS: BASOPHILS % 1.2 % (0.0-2.0); EOSINOPHILS % 5.2 % (0.0-5.0); HEMATOCRIT. 29.5 % (36.0-48.0); LYMPHOCYTES % 33.4 % (20.0-50.0); MEAN CORPUSCULAR HEMOGLOBIN 32.3 pg (28.0-32.0); MEAN CORPUSCULAR VOLUME 95.3 fL (81.0-99.0); MEAN PLATELET VOLUME 8.4 fl (7.4-10.4); MONOCYTES % 9.3 % (2.0-8.0); NEUTROPHILS % 50.9 % (40.0-76.0); PLATELET 205 x1000/uL (130-400); RED CELL DISTRIBUTION WIDTH 19.4 % (11.6-14.6)
[2018-10-14 08:00] VITALS: BP 120/81
[2018-10-14] MEDS: SODIUM HYPOCHLORITE 0.125% 473ML SOLUTION TOP SCH (09:00)
[2018-10-14] MEDS: METOPROLOL TARTRATE 25MG TABLET PO SCH ×2 (09:30→21:00)
[2018-10-14] MEDS: PANTOPRAZOLE SODIUM 40 MG/VIAL IV SCH (09:30)
[2018-10-14 12:00] VITALS: BP 119/47
[2018-10-14] MEDS: SODIUM CHLORIDE 0.45% 1,000 ML IV SCH (14:16)
[2018-10-14 16:00] VITALS: BP 135/55
[2018-10-14 20:00] VITALS: BP 107/47
[2018-10-14] MEDS: LEVOFLOXACIN 250MG PREMIX 50 ML IV SCH (22:07)
[2018-10-15] VITALS: BP 113/48
[2018-10-15] MEDS: VANCOMYCIN 500 MG PREMIX 100 ML IV SCH (00:06)
[2018-10-15 04:00] VITALS: BP 120/62
[2018-10-15 08:00] VITALS: BP 142/52
[2018-10-15] MEDS: SODIUM HYPOCHLORITE 0.125% 473ML SOLUTION TOP SCH (11:15)
[2018-10-15] MEDS: FOLIC ACID 1MG TABLET PO SCH (11:22)
[2018-10-15] MEDS: PANTOPRAZOLE SODIUM 40 MG/VIAL IV SCH (11:23)
[2018-10-15] MEDS: METOPROLOL TARTRATE 25MG TABLET PO SCH ×2 (11:23→21:00)
[2018-10-15] MEDS: CYANOCOBALAMIN 1000MCG/ML VIAL IM SCH (11:23)
[2018-10-15 12:00] VITALS: BP 97/38
[2018-10-15 15:08] LABS: HEMATOCRIT 29.2 % (36.0-48.0); HEMOGLOBIN 9.8 g/dL (12.0-16.0); MEAN CORPUSCULAR HEMOGLOBIN 32.5 pg (28.0-32.0); MEAN CORPUSCULAR VOLUME 96.9 fL (81.0-99.0); PLATELET 202 x1000/uL (130-400); RED BLOOD CELL COUNT 3.01 mill/uL (4.2-5.4); RED CELL DISTRIBUTION WIDTH 19.4 % (11.6-14.6)
[2018-10-15 16:00] VITALS: BP 118/48
[2018-10-15] MEDS: VANCOMYCIN 750 MG PREMIX 150 ML IV SCH (17:42)
[2018-10-15] MEDS: SODIUM CHLORIDE 0.45% 1,000 ML IV SCH (17:43)
[2018-10-15 20:00] VITALS: BP 106/50
[2018-10-15] MEDS: LEVOFLOXACIN 250MG PREMIX 50 ML IV SCH (21:22)
[2018-10-16] VITALS: BP 120/60
[2018-10-16 04:00] VITALS: BP 146/44
[2018-10-16 08:00] VITALS: BP 139/52
[2018-10-16] MEDS: PANTOPRAZOLE SODIUM 40 MG/VIAL IV SCH (09:56)
[2018-10-16] MEDS: FOLIC ACID 1MG TABLET PO SCH (09:56)
[2018-10-16] MEDS: CYANOCOBALAMIN 1000MCG/ML VIAL IM SCH (09:56)
[2018-10-16] MEDS: METOPROLOL TARTRATE 25MG TABLET PO SCH ×2 (09:56→21:56)
[2018-10-16 12:00] VITALS: BP 119/49
[2018-10-16] MEDS: VANCOMYCIN 750 MG PREMIX 150 ML IV SCH (12:24)
[2018-10-16] MEDS: SODIUM CHLORIDE 0.45% 1,000 ML IV SCH (17:32)
[2018-10-16] MEDS: SODIUM HYPOCHLORITE 0.125% 473ML SOLUTION TOP SCH (17:33)
[2018-10-16 20:00] VITALS: BP 125/51
[2018-10-16] MEDS: LEVOFLOXACIN 250MG PREMIX 50 ML IV SCH (21:56)
[2018-10-17] VITALS: BP 118/56
[2018-10-17 04:00] VITALS: BP 125/44
[2018-10-17] MEDS: VANCOMYCIN 750 MG PREMIX 150 ML IV SCH (06:46)
[2018-10-17 08:00] VITALS: BP 121/70
[2018-10-17] MEDS ORDERED: ASPIRIN 81MG TABLET PO SCH (09:00)
[2018-10-17 09:49] LABS: CHLORIDE 110 mEq/L (98-107)
[2018-10-17 09:51] LABS: HEMATOCRIT 27.2 % (36.0-48.0)
[2018-10-17] MEDS: PANTOPRAZOLE SODIUM 40 MG/VIAL IV SCH (10:18)
[2018-10-17] MEDS: FOLIC ACID 1MG TABLET PO SCH (10:19)
[2018-10-17] MEDS: METOPROLOL TARTRATE 25MG TABLET PO SCH (10:19)
[2018-10-17] MEDS: CYANOCOBALAMIN 1000MCG/ML VIAL IM SCH (10:19)
[2018-10-17] MEDS: SODIUM HYPOCHLORITE 0.125% 473ML SOLUTION TOP SCH (10:20)
[2018-10-17 12:00] VITALS: BP 118/74
[2018-10-17 16:00] VITALS: BP 116/41
[2018-10-17 17:58] VITALS: BP 116/41
[2018-10-18] MEDS ORDERED: LEVOFLOXACIN 250MG TABLET PO SCH (21:00)
== END 2018-10-17 18:53 | disposition home health service (06) | DRG 570 ==
LOC: ER 11:38 → 7WST 12:46 → EDBEDREQ 12:55 → ENRESERV 13:21
PROVIDERS: ADMIT Internal Medicine; ATTEND Internal Medicine
PROC: 30233N1 Transfusion of Nonautologous Red Blood Cells into Peripheral Vein, Percutaneous Approach (ICD-10-PCS; principal; 2018-10-12)
PROC: 4B02XSZ Measurement of Cardiac Pacemaker, External Approach (ICD-10-PCS; 2018-10-12)
PROC: 0QB10ZZ Excision of Sacrum, Open Approach (ICD-10-PCS; 2018-10-14)
PROC: 0JB90ZZ Excision of Buttock Subcutaneous Tissue and Fascia, Open Approach (ICD-10-PCS; 2018-10-14)
PROC: 0JBL0ZZ Excision of Right Upper Leg Subcutaneous Tissue and Fascia, Open Approach (ICD-10-PCS; 2018-10-14)
PROC: 0JB90ZZ Excision of Buttock Subcutaneous Tissue and Fascia, Open Approach (ICD-10-PCS; 2018-10-14)
DX: L89.154 Pressure ulcer of sacral region, stage 4 (principal); G93.41 Metabolic encephalopathy; E46 Unspecified protein-calorie malnutrition; N39.0 Urinary tract infection, site not specified; D68.9 Coagulation defect, unspecified; I13.0 Hypertensive heart and chronic kidney disease with heart failure and stage 1 through stage 4 chronic kidney disease, or unspecified chronic kidney disease; L89.323 Pressure ulcer of left buttock, stage 3; L89.313 Pressure ulcer of right buttock, stage 3; L89.213 Pressure ulcer of right hip, stage 3; R07.89 Other chest pain; E87.6 Hypokalemia; I48.0 Paroxysmal atrial fibrillation; D64.9 Anemia, unspecified; E03.9 Hypothyroidism, unspecified; I50.9 Heart failure, unspecified; I49.3 Ventricular premature depolarization; E53.8 Deficiency of other specified B group vitamins; E88.09 Other disorders of plasma-protein metabolism, not elsewhere classified; N18.9 Chronic kidney disease, unspecified; I25.10 Atherosclerotic heart disease of native coronary artery without angina pectoris; H91.90 Unspecified hearing loss, unspecified ear; F03.90 Unspecified dementia, unspecified severity, without behavioral disturbance, psychotic disturbance, mood disturbance, and anxiety; J44.9 Chronic obstructive pulmonary disease, unspecified; J32.9 Chronic sinusitis, unspecified; Z98.42 Cataract extraction status, left eye; Z95.0 Presence of cardiac pacemaker; Z98.41 Cataract extraction status, right eye; Z87.891 Personal history of nicotine dependence; Z91.81 History of falling; Z68.23 Body mass index [BMI] 23.0-23.9, adult; Z79.899 Other long term (current) drug therapy
CPT/HCPCS: 36415; 71045; 80048; 80061; 80202; 82270; 82607; 82728; 82746; 83540; 83550; 83605; 83735; 84134; 84145; 84439; 84443; 84484; 85014; 85018; 85027; 86850; 86900; 86920; 87070; 87076; 93005; 93306; 93970; 96365; 99285; A6261; C1893; C9113; J1650; J1956; J2543; J3370; J3420; J3480; J3490; J7040; J7050; P9016

== ENCOUNTER 2018-12-22 16:51 | Inpatient (IN) | payer MEDICARE, OTHER ==
[~2018-12-22] VITALS: Ht 157.5 cm; Wt 51.7 kg
[~2018-12-22 16:51] MED LIST changes: +ALLO100T PO; -AMLO5TAB4 PO
[2018-12-22] MEDS ORDERED: ONDANSETRON HCL 4MG/2ML INJ IV STA (18:11)
[2018-12-22] MEDS ORDERED: SODIUM CHLORIDE 0.9% 500 ML IV ONE (18:15)
[2018-12-22] MEDS ORDERED: ASPIRIN 81MG TABLET PO ONE (18:15)
[2018-12-22 20:00] LABS: BASOPHILS % 2.5 % (0.0-2.0); EOSINOPHILS % 8.3 % (0.0-5.0); HEMATOCRIT. 23.4 % (36.0-48.0); HEMOGLOBIN. 7.8 g/dL (12.0-16.0); LYMPHOCYTES % 33.8 % (20.0-50.0); MEAN CORPUSCULAR HEMOGLOBIN 33.6 pg (28.0-32.0); MEAN CORPUSCULAR VOLUME 101.7 fL (81.0-99.0); MEAN PLATELET VOLUME 9.9 fl (7.4-10.4); MONOCYTES % 7.5 % (2.0-8.0); NEUTROPHILS % 47.9 % (40.0-76.0); PLATELET 200 x1000/uL (130-400); RED CELL DISTRIBUTION WIDTH 17.3 % (11.6-14.6)
[2018-12-22 20:06] LABS: CHLORIDE 116 mEq/L (98-107)
[2018-12-22 20:11] LABS: CLARITY URINE CLEAR (CLEAR); COLOR URINE YELLOW (YELLOW); KETONES URINE NEGATIVE (NEGATIVE); LEUKOCYTE ESTERASE URINE NEGATIVE (NEGATIVE); NITRITE URINE NEGATIVE (NEGATIVE); OCCULT BLOOD URINE NEGATIVE (NEGATIVE); PH URINE 5.5 (4.5-8.0); PROTEIN URINE NEGATIVE (NEGATIVE); SPECIFIC GRAVITY URINE 1.016 (1.005-1.030)
[2018-12-23] VITALS (11 sets, daily range): BP systolic 103–136; BP diastolic 29–54
[2018-12-23] MEDS ORDERED: POTASSIUM CHLORIDE 20MEQ TABLET SR PO NR ×2 (00:15→04:00)
[2018-12-23] MEDS: MULTIVITAMINS,THER W-MINERALS TABLET PO SCH (08:37)
[2018-12-23] MEDS: ALLOPURINOL 100 MG TABLET PO SCH ×2 (08:37→17:06)
[2018-12-23] MEDS: LEVOTHYROXINE SODIUM 175MCG TABLET PO SCH (08:37)
[2018-12-23] MEDS: METOPROLOL TARTRATE 50MG TABLET PO SCH ×2 (08:37→21:00)
[2018-12-23 09:13] LABS: BASOPHILS % 1.6 % (0.0-2.0); EOSINOPHILS % 12.9 % (0.0-5.0); LYMPHOCYTES % 35.2 % (20.0-50.0); MEAN CORPUSCULAR HEMOGLOBIN 33.6 pg (28.0-32.0); MEAN CORPUSCULAR VOLUME 100.5 fL (81.0-99.0); MEAN PLATELET VOLUME 9.7 fl (7.4-10.4); MONOCYTES % 9.2 % (2.0-8.0); NEUTROPHILS % 41.1 % (40.0-76.0); PLATELET 178 x1000/uL (130-400); RED BLOOD CELL COUNT 2.09 mill/uL (4.2-5.4); RED CELL DISTRIBUTION WIDTH 17.3 % (11.6-14.6)
[2018-12-23 09:20] LABS: CHLORIDE 123 mEq/L (98-107)
[2018-12-23 19:01] LABS: HEMATOCRIT 30.6 % (36.0-48.0)
[2018-12-23 19:14] LABS: HDL CHOLESTEROL 51 mg/dL (40-59); LDL CHOLESTEROL 128 mg/dL (5-100)
[2018-12-23 19:15] LABS: CREATINE KINASE MB FRACTION < 1.0 ng/mL (0.5-3.6); T4 FREE 1.72 ng/dL (0.76-1.46)
[2018-12-23 19:16] LABS: CREATINE KINASE 24 IU/L (26-192)
[2018-12-23] MEDS: MONTELUKAST SODIUM 10MG TABLET PO SCH (21:29)
[2018-12-24] VITALS: BP 144/38
[2018-12-24 04:00] VITALS: BP 133/30
[2018-12-24] MEDS: LEVOTHYROXINE SODIUM 175MCG TABLET PO SCH (06:46)
[2018-12-24 07:52] VITALS: BP 139/39
[2018-12-24] MEDS: MULTIVITAMINS,THER W-MINERALS TABLET PO SCH (08:24)
[2018-12-24] MEDS: METOPROLOL TARTRATE 50MG TABLET PO SCH ×2 (08:25→21:00)
[2018-12-24] MEDS: ALLOPURINOL 100 MG TABLET PO SCH ×2 (08:26→16:42)
[2018-12-24 10:34] LABS: CREATINE KINASE 18 IU/L (26-192)
[2018-12-24 10:35] LABS: CREATINE KINASE MB FRACTION < 1.0 ng/mL (0.5-3.6)
[2018-12-24 12:00] VITALS: BP 126/45
[2018-12-24 16:06] LABS: TOTAL IRON BINDING CAPACITY 107 ug/dL (250-450)
[2018-12-24 16:15] VITALS: BP 119/39
[2018-12-24 16:45] LABS: VITAMIN B12 SERUM 365 pg/mL (211-911)
[2018-12-24] MEDS ORDERED: MAGNESIUM 2 G PREMIX 50 ML IV SCH (17:00)
[2018-12-24 19:50] LABS: CREATINE KINASE 19 IU/L (26-192)
[2018-12-24 19:51] LABS: CREATINE KINASE MB FRACTION < 1.0 ng/mL (0.5-3.6)
[2018-12-24 20:00] VITALS: BP 102/40
[2018-12-24] MEDS: MONTELUKAST SODIUM 10MG TABLET PO SCH (21:46)
[2018-12-25] VITALS: BP 104/41
[2018-12-25 04:00] VITALS: BP 133/35
[2018-12-25] MEDS: LEVOTHYROXINE SODIUM 175MCG TABLET PO SCH (07:57)
[2018-12-25 08:00] VITALS: BP 140/43
[2018-12-25] MEDS: MULTIVITAMINS,THER W-MINERALS TABLET PO SCH (09:28)
[2018-12-25] MEDS: METOPROLOL TARTRATE 50MG TABLET PO SCH (09:28)
[2018-12-25] MEDS: ALLOPURINOL 100 MG TABLET PO SCH ×2 (09:28→17:42)
[2018-12-25 12:00] VITALS: BP 122/53
[2018-12-25] MEDS ORDERED: FERROUS SULFATE 325MG TABLET PO SCH (12:30)
[2018-12-25 13:25] LABS: BASOPHILS % 1.3 % (0.0-2.0); EOSINOPHILS % 9.4 % (0.0-5.0); HEMATOCRIT. 27.9 % (36.0-48.0); HEMOGLOBIN. 9.3 g/dL (12.0-16.0); LYMPHOCYTES % 25.3 % (20.0-50.0); MEAN CORPUSCULAR HEMOGLOBIN 32.4 pg (28.0-32.0); MEAN CORPUSCULAR VOLUME 96.9 fL (81.0-99.0); MEAN PLATELET VOLUME 9.8 fl (7.4-10.4); MONOCYTES % 6.9 % (2.0-8.0); NEUTROPHILS % 57.1 % (40.0-76.0); PLATELET 178 x1000/uL (130-400); RED BLOOD CELL COUNT 2.88 mill/uL (4.2-5.4); RED CELL DISTRIBUTION WIDTH 20.8 % (11.6-14.6)
[2018-12-25 13:28] LABS: CHLORIDE 114 mEq/L (98-107)
[2018-12-25 16:00] VITALS: BP 104/78
[2018-12-25] MEDS ORDERED: CLONIDINE 0.1MG TABLET PO PRN (16:00)
[2018-12-25] MEDS ORDERED: NA PHOS,M-B/NA PHOS,DI-BA ENEMA 118ML PR PRN (16:00)
[2018-12-25] MEDS ORDERED: MEDICATION NOT ON FORMULARY EA (Rivaroxaban (Xarelto) 20 MG) PO SCH (16:00)
[2018-12-25] MEDS ORDERED: ACETAMINOPHEN 325MG TABLET PO PRN (16:00)
[2018-12-25] MEDS ORDERED: DIPHENHYDRAMINE 50MG/ML VIAL IV PRN (16:00)
[2018-12-25] MEDS ORDERED: DOCUSATE SODIUM 100MG CAPSULE PO PRN (16:00)
[2018-12-25] MEDS ORDERED: GUAIFENESIN 200MG/10ML SUGAR FREE UDC PO PRN (16:00)
[2018-12-25] MEDS ORDERED: ACETAMINOPHEN 650MG SUPP PR PRN (16:00)
[2018-12-25] MEDS ORDERED: HYDROCODONE/ACETAMINOPHEN 5/325MG TABLET PO PRN (16:00)
[2018-12-25] MEDS ORDERED: MAGNESIUM/ALUMINUM HYDROXIDE/SIMETHICONE 30ML UDC PO PRN (16:00)
[2018-12-25] MEDS ORDERED: ACETAMINOPHEN 650MG/20.3ML UDC GT PRN (16:00)
[2018-12-25] MEDS ORDERED: ONDANSETRON HCL 4MG/2ML INJ IV PRN (16:00)
[2018-12-25] MEDS ORDERED: RIVAROXABAN 10 MG TABLET PO SCH (17:00)
[2018-12-25 18:41] VITALS: BP 104/78
[2018-12-25] MEDS ORDERED: SODIUM CHLORIDE 0.9% INJ 3ML FLUSH IVF SCH (22:00)
== END 2018-12-25 20:00 | disposition home health service (06) | DRG 313 ==
LOC: ER 16:51 → EDBEDREQ 18:18 → 7WST 20:32 → EDBEDREQTM 20:35 → EDBEDREQ 20:35 → ENRESERV 21:37
PROVIDERS: ADMIT Family Medicine; ATTEND Family Medicine
PROC: 30233N1 Transfusion of Nonautologous Red Blood Cells into Peripheral Vein, Percutaneous Approach (ICD-10-PCS; principal; 2018-12-23)
DX: R07.89 Other chest pain (principal); L89.154 Pressure ulcer of sacral region, stage 4; D50.9 Iron deficiency anemia, unspecified; D12.4 Benign neoplasm of descending colon; E53.8 Deficiency of other specified B group vitamins; E03.9 Hypothyroidism, unspecified; I10 Essential (primary) hypertension; I48.0 Paroxysmal atrial fibrillation; M10.9 Gout, unspecified; L89.319 Pressure ulcer of right buttock, unspecified stage; K64.4 Residual hemorrhoidal skin tags; K64.8 Other hemorrhoids; M24.412 Recurrent dislocation, left shoulder; Z95.0 Presence of cardiac pacemaker; I49.5 Sick sinus syndrome; Z74.01 Bed confinement status
CPT/HCPCS: 36415; 36430; 71045; 80048; 80061; 82270; 82550; 82553; 82607; 82962; 83036; 83540; 83550; 83605; 83735; 83880; 84134; 84439; 84443; 84484; 85014; 85018; 85379; 86850; 86900; 86920; 93005; 93306; 93970; 96360; 97162; 99285; A6261; J2405; J3475; J7040; J7050; P9016

== ENCOUNTER 2019-03-28 15:52 | Inpatient (IN) | payer MEDICARE, OTHER ==
[~2019-03-28] VITALS: Ht 162.6 cm; Wt 44.9 kg
[2019-03-28] MEDS ORDERED: ACETAMINOPHEN 325MG TABLET PO STA (16:20)
[2019-03-28] MEDS ORDERED: PIPERACILLIN/TAZ 3.375G PREMIX 50 ML IV ONE (16:30)
[2019-03-28] MEDS ORDERED: VANCOMYCIN 1 G PREMIX 200 ML IV ONE (16:30)
[2019-03-28] MEDS ORDERED: SODIUM CHLORIDE 0.9% 1000ML BAG (SEPSIS BOLUS) IV ONE (16:30)
[2019-03-28 16:42] LABS: BASOPHILS % 0.9 % (0.0-2.0); EOSINOPHILS % 3.3 % (0.0-5.0); HEMATOCRIT. 24.4 % (36.0-48.0); HEMOGLOBIN. 8.1 g/dL (12.0-16.0); LYMPHOCYTES % 25.3 % (20.0-50.0); MEAN CORPUSCULAR HEMOGLOBIN 35.1 pg (28.0-32.0); MEAN CORPUSCULAR VOLUME 105.7 fL (81.0-99.0); MONOCYTES % 7.3 % (2.0-8.0); NEUTROPHILS % 63.2 % (40.0-76.0); PLATELET 204 x1000/uL (130-400); RED BLOOD CELL COUNT 2.31 mill/uL (4.2-5.4); RED CELL DISTRIBUTION WIDTH 17.4 % (11.6-14.6)
[2019-03-28 16:43] LABS: CHLORIDE 115 mEq/L (98-107)
[2019-03-28] MEDS ORDERED: CLONIDINE 0.1MG TABLET PO PRN (20:15)
[2019-03-28] MEDS ORDERED: DOCUSATE SODIUM 100MG CAPSULE PO PRN (20:15)
[2019-03-28] MEDS ORDERED: ONDANSETRON HCL 4MG/2ML INJ IV PRN (20:15)
[2019-03-28] MEDS ORDERED: LEVOFLOXACIN 500MG PREMIX 100 ML IV SCH (20:15)
[2019-03-28] MEDS ORDERED: GUAIFENESIN 200MG/10ML SUGAR FREE UDC PO PRN (20:15)
[2019-03-28] MEDS ORDERED: ACETAMINOPHEN 325MG TABLET PO PRN (20:15)
[2019-03-28] MEDS: SODIUM CHLORIDE 0.45% 1,000 ML IV SCH (20:46)
[2019-03-28] MEDS ORDERED: LEVOFLOXACIN 500MG PREMIX 100 ML IV NR (20:48)
[2019-03-29] VITALS: BP 137/39
[2019-03-29 04:00] VITALS: BP 117/43
[2019-03-29 06:59] LABS: BASOPHILS % 1.3 % (0.0-2.0); EOSINOPHILS % 10.1 % (0.0-5.0); HEMATOCRIT. 21.1 % (36.0-48.0); HEMOGLOBIN. 7.1 g/dL (12.0-16.0); LYMPHOCYTES % 27.2 % (20.0-50.0); MEAN CORPUSCULAR HEMOGLOBIN 35.7 pg (28.0-32.0); MEAN CORPUSCULAR VOLUME 106.3 fL (81.0-99.0); MONOCYTES % 7.8 % (2.0-8.0); NEUTROPHILS % 53.6 % (40.0-76.0); PLATELET 150 x1000/uL (130-400); RED BLOOD CELL COUNT 1.98 mill/uL (4.2-5.4); RED CELL DISTRIBUTION WIDTH 17.1 % (11.6-14.6)
[2019-03-29 07:27] LABS: CHLORIDE 118 mEq/L (98-107)
[2019-03-29 08:00] VITALS: BP 106/37
[2019-03-29] MEDS ORDERED: POTASSIUM CHLORIDE 20MEQ TABLET SR PO NR (08:45)
[2019-03-29] MEDS: ALLOPURINOL 100 MG TABLET PO SCH ×2 (09:08→17:21)
[2019-03-29] MEDS: LEVOTHYROXINE SODIUM 175MCG TABLET PO SCH (09:09)
[2019-03-29] MEDS: MULTIVITAMINS,THER W-MINERALS TABLET PO SCH (09:09)
[2019-03-29] MEDS: VANCOMYCIN 750 MG PREMIX 150 ML IV SCH (10:09)
[2019-03-29 12:00] VITALS: BP 110/41
[2019-03-29] MEDS: SODIUM CHLORIDE 0.45% 1,000 ML IV SCH ×2 (13:27→13:28)
[2019-03-29 16:00] VITALS: BP 112/49
[2019-03-29 16:12] LABS: HEMATOCRIT 23.6 % (36.0-48.0); HEMOGLOBIN 7.6 g/dL (12.0-16.0)
[2019-03-29] MEDS: RIVAROXABAN 15 MG TABLET PO SCH (17:21)
[2019-03-29 20:00] VITALS: BP 125/53
[2019-03-29] MEDS: LEVOFLOXACIN 250MG PREMIX 50 ML IV SCH (20:40)
[2019-03-30] VITALS: BP 124/51
[2019-03-30 04:00] VITALS: BP 119/57
[2019-03-30] MEDS: VANCOMYCIN 750 MG PREMIX 150 ML IV SCH ×2 (04:17→21:51)
[2019-03-30 08:00] VITALS: BP 118/43
[2019-03-30] MEDS: MULTIVITAMINS,THER W-MINERALS TABLET PO SCH (08:40)
[2019-03-30] MEDS: ALLOPURINOL 100 MG TABLET PO SCH ×2 (08:40→17:13)
[2019-03-30] MEDS: LEVOTHYROXINE SODIUM 175MCG TABLET PO SCH (10:50)
[2019-03-30 11:53] VITALS: BP 108/49
[2019-03-30 15:41] LABS: BASOPHILS % 1.1 % (0.0-2.0); EOSINOPHILS % 8.6 % (0.0-5.0); HEMATOCRIT. 23.5 % (36.0-48.0); HEMOGLOBIN. 7.6 g/dL (12.0-16.0); LYMPHOCYTES % 29.4 % (20.0-50.0); MEAN CORPUSCULAR HEMOGLOBIN 35.2 pg (28.0-32.0); MEAN CORPUSCULAR VOLUME 108.6 fL (81.0-99.0); MEAN PLATELET VOLUME 9.2 fl (7.4-10.4); MONOCYTES % 7.1 % (2.0-8.0); NEUTROPHILS % 53.8 % (40.0-76.0); PLATELET 176 x1000/uL (130-400); RED BLOOD CELL COUNT 2.17 mill/uL (4.2-5.4); RED CELL DISTRIBUTION WIDTH 17.1 % (11.6-14.6)
[2019-03-30 15:49] LABS: CHLORIDE 114 mEq/L (98-107)
[2019-03-30 15:59] VITALS: BP 96/31
[2019-03-30] MEDS: RIVAROXABAN 15 MG TABLET PO SCH (17:13)
[2019-03-30 20:00] VITALS: BP 124/53
[2019-03-30] MEDS: SODIUM CHLORIDE 0.45% 1,000 ML IV SCH (20:37)
[2019-03-30] MEDS: LEVOFLOXACIN 250MG PREMIX 50 ML IV SCH (20:37)
[2019-03-31] VITALS (7 sets, daily range): BP systolic 109–162; BP diastolic 47–76
[2019-03-31] MEDS: ALLOPURINOL 100 MG TABLET PO SCH ×2 (08:53→16:53)
[2019-03-31] MEDS: MULTIVITAMINS,THER W-MINERALS TABLET PO SCH (08:53)
[2019-03-31] MEDS: LEVOTHYROXINE SODIUM 175MCG TABLET PO SCH (10:04)
[2019-03-31] MEDS: RIVAROXABAN 15 MG TABLET PO SCH (16:53)
[2019-03-31] MEDS ORDERED: ATORVASTATIN CALCIUM 20MG TABLET PO SCH (21:00)
[2019-04-01] VITALS: BP 124/76
[2019-04-01 04:00] VITALS: BP 127/72
[2019-04-01 08:00] VITALS: BP 122/38
[2019-04-01] MEDS: MULTIVITAMINS,THER W-MINERALS TABLET PO SCH (09:00)
[2019-04-01] MEDS: LEVOTHYROXINE SODIUM 175MCG TABLET PO SCH (09:00)
[2019-04-01] MEDS: ALLOPURINOL 100 MG TABLET PO SCH ×2 (09:00→16:43)
[2019-04-01 12:00] VITALS: BP 109/47
[2019-04-01 16:00] VITALS: BP 146/56
[2019-04-01] MEDS: RIVAROXABAN 15 MG TABLET PO SCH (16:43)
[2019-04-01] MEDS ORDERED: SULFAMETHOXAZOLE/TRIMETHOPRIM 800/160MG TABLET PO SCH (17:00)
== END 2019-04-01 19:08 | DRG 871 ==
LOC: ER 15:52 → 8WST 18:48 → EDBEDREQ 18:59 → EDBEDREQSVC 18:59 → SUPCPDRO 20:11 → ENRESERV 22:53
PROVIDERS: ADMIT Hospitalist; ATTEND Hospitalist
DX: A41.9 Sepsis, unspecified organism (principal); L89.154 Pressure ulcer of sacral region, stage 4; D68.59 Other primary thrombophilia; E46 Unspecified protein-calorie malnutrition; Z68.1 Body mass index [BMI] 19.9 or less, adult; L89.619 Pressure ulcer of right heel, unspecified stage; I48.91 Unspecified atrial fibrillation; I49.5 Sick sinus syndrome; J44.9 Chronic obstructive pulmonary disease, unspecified; M10.9 Gout, unspecified; E03.9 Hypothyroidism, unspecified; M19.90 Unspecified osteoarthritis, unspecified site; D64.9 Anemia, unspecified; I10 Essential (primary) hypertension; R50.9 Fever, unspecified; I25.10 Atherosclerotic heart disease of native coronary artery without angina pectoris; Z79.899 Other long term (current) drug therapy; Z95.0 Presence of cardiac pacemaker; I25.2 Old myocardial infarction; Z74.01 Bed confinement status; Z99.3 Dependence on wheelchair
CPT/HCPCS: 36415; 71045; 73630; 80202; 83605; 83735; 84134; 84145; 84484; 85014; 85018; 86850; 86900; 86920; 93005; 93970; 96365; 96367; 96368; 99285; J1956; J2543; J3370; J7030

== ENCOUNTER 2019-04-10 15:12 | Inpatient (IN) | payer MEDICARE, OTHER ==
[~2019-04-10] VITALS: Ht 157.5 cm; Wt 47.2 kg
[2019-04-10 16:08] LABS: MEAN CORPUSCULAR VOLUME 106.8 fL (81.0-99.0); MEAN PLATELET VOLUME 9.3 fl (7.4-10.4); PLATELET 193 x1000/uL (130-400); RED BLOOD CELL COUNT 1.92 mill/uL (4.2-5.4)
[2019-04-10 16:12] LABS: HEMOGLOBIN. 6.9 g/dL (12.0-16.0)
[2019-04-10 16:13] LABS: CHLORIDE 112 mEq/L (98-107); HEMATOCRIT. 20.5 % (36.0-48.0)
[2019-04-10 16:16] LABS: INR 1.2
[2019-04-10 17:01] LABS: PLATELET ESTIMATE NORMAL
[2019-04-10] MEDS ORDERED: ONDANSETRON HCL 4MG/2ML INJ IV PRN (18:30)
[2019-04-10] MEDS ORDERED: NITROGLYCERIN 0.4MG TABLET SL SL PRN (18:30)
[2019-04-10] MEDS ORDERED: TRAMADOL 50MG TABLET PO PRN (18:30)
[2019-04-10] MEDS ORDERED: MAGNESIUM/ALUMINUM HYDROXIDE/SIMETHICONE 30ML UDC PO PRN (18:30)
[2019-04-10] MEDS ORDERED: DIPHENHYDRAMINE 50MG/ML VIAL IV PRN (18:30)
[2019-04-10] MEDS ORDERED: DOCUSATE SODIUM 100MG CAPSULE PO PRN (18:30)
[2019-04-10] MEDS ORDERED: NA PHOS,M-B/NA PHOS,DI-BA ENEMA 118ML PR PRN (18:30)
[2019-04-10] MEDS ORDERED: CLONIDINE 0.1MG TABLET PO PRN (18:30)
[2019-04-10] MEDS ORDERED: LORAZEPAM 0.5MG TABLET PO PRN (18:30)
[2019-04-10] MEDS ORDERED: ENOXAPARIN 40MG/0.4ML SYR SUBCUT SCH (18:30)
[2019-04-10] MEDS ORDERED: GUAIFENESIN 200MG/10ML SUGAR FREE UDC PO PRN (18:30)
[2019-04-10] MEDS ORDERED: ACETAMINOPHEN 325MG TABLET PO PRN (18:30)
[2019-04-10 20:14] LABS: FOLIC ACID (FOLATE) SERUM 6.1 ng/mL (>5.38)
[2019-04-10 22:55] VITALS: BP 119/67
[2019-04-10] MEDS ORDERED: ZOLPIDEM TARTRATE 5MG TABLET PO PRN (23:00)
[2019-04-11] VITALS: BP 116/68
[2019-04-11] MEDS: METOPROLOL TARTRATE 50MG TABLET PO SCH ×3 (01:17→20:51)
[2019-04-11 04:00] VITALS: BP 114/48
[2019-04-11] MEDS: SUCRALFATE 1 G/10 ML UDC PO SCH ×4 (06:15→20:51)
[2019-04-11] MEDS: LEVOTHYROXINE SODIUM 175MCG TABLET PO SCH (06:16)
[2019-04-11] MEDS ORDERED: FUROSEMIDE 20MG TABLET PO SCH (07:15)
[2019-04-11 08:00] VITALS: BP 125/46
[2019-04-11] MEDS: PANTOPRAZOLE SODIUM 40 MG/VIAL IV SCH (09:15)
[2019-04-11] MEDS: ENOXAPARIN 30MG/0.3ML SYR SUBCUT SCH (09:15)
[2019-04-11 12:00] VITALS: BP 93/27
[2019-04-11] MEDS: SODIUM CHLORIDE 0.45% 1,000 ML IV SCH (15:52)
[2019-04-11 16:05] VITALS: BP 104/27
[2019-04-11 17:51] LABS: BASOPHILS % 1.9 % (0.0-2.0); EOSINOPHILS % 10.6 % (0.0-5.0); HEMATOCRIT. 24.5 % (36.0-48.0); HEMOGLOBIN. 8.3 g/dL (12.0-16.0); LYMPHOCYTES % 35.9 % (20.0-50.0); MEAN CORPUSCULAR HEMOGLOBIN 34.4 pg (28.0-32.0); MEAN CORPUSCULAR VOLUME 101.7 fL (81.0-99.0); MEAN PLATELET VOLUME 10.2 fl (7.4-10.4); NEUTROPHILS % 43.6 % (40.0-76.0); PLATELET 187 x1000/uL (130-400); RED BLOOD CELL COUNT 2.41 mill/uL (4.2-5.4); RED CELL DISTRIBUTION WIDTH 20.9 % (11.6-14.6)
[2019-04-11] MEDS ORDERED: SODIUM POLYSTYRENE SULFONATE 15 G/60 ML BOT PO SCH (19:30)
[2019-04-11 20:00] VITALS: BP 121/68
[2019-04-12] VITALS (7 sets, daily range): BP systolic 105–142; BP diastolic 30–60
[2019-04-12] MEDS: SODIUM CHLORIDE 0.45% 1,000 ML IV SCH (05:31)
[2019-04-12] MEDS: LEVOTHYROXINE SODIUM 175MCG TABLET PO SCH (07:53)
[2019-04-12] MEDS: SUCRALFATE 1 G/10 ML UDC PO SCH ×3 (07:54→17:41)
[2019-04-12 08:02] LABS: EOSINOPHILS % 7.1 % (0.0-5.0); HEMATOCRIT. 27.7 % (36.0-48.0); HEMOGLOBIN. 9.4 g/dL (12.0-16.0); LYMPHOCYTES % 23.8 % (20.0-50.0); MEAN CORPUSCULAR HEMOGLOBIN 34.9 pg (28.0-32.0); MEAN CORPUSCULAR VOLUME 102.2 fL (81.0-99.0); MEAN PLATELET VOLUME 10.2 fl (7.4-10.4); NEUTROPHILS % 62.1 % (40.0-76.0); PLATELET 212 x1000/uL (130-400); RED BLOOD CELL COUNT 2.71 mill/uL (4.2-5.4); RED CELL DISTRIBUTION WIDTH 20.5 % (11.6-14.6)
[2019-04-12] MEDS: ENOXAPARIN 30MG/0.3ML SYR SUBCUT SCH (08:02)
[2019-04-12] MEDS: PANTOPRAZOLE SODIUM 40 MG/VIAL IV SCH (08:03)
[2019-04-12] MEDS: METOPROLOL TARTRATE 50MG TABLET PO SCH (08:03)
[2019-04-12 08:20] LABS: CHLORIDE 110 mEq/L (98-107)
[2019-04-12] MEDS ORDERED: RIVAROXABAN 15 MG TABLET PO SCH (17:00)
[2019-04-13] MEDS ORDERED: FAMOTIDINE 20MG TABLET PO SCH (09:00)
[2019-04-13] MEDS ORDERED: FUROSEMIDE 20MG TABLET PO SCH (09:00)
== END 2019-04-12 20:50 | DRG 682 ==
LOC: ER 15:44 → 8WST 17:56 → ENRESERV 21:45
PROVIDERS: ADMIT Internal Medicine; ATTEND Internal Medicine
PROC: 30233N1 Transfusion of Nonautologous Red Blood Cells into Peripheral Vein, Percutaneous Approach (ICD-10-PCS; principal; 2019-04-10)
DX: N17.9 Acute kidney failure, unspecified (principal); L89.154 Pressure ulcer of sacral region, stage 4; E43 Unspecified severe protein-calorie malnutrition; E87.2 Acidosis; Z68.1 Body mass index [BMI] 19.9 or less, adult; D68.59 Other primary thrombophilia; E03.9 Hypothyroidism, unspecified; F03.90 Unspecified dementia, unspecified severity, without behavioral disturbance, psychotic disturbance, mood disturbance, and anxiety; I10 Essential (primary) hypertension; I48.91 Unspecified atrial fibrillation; J44.9 Chronic obstructive pulmonary disease, unspecified; D50.9 Iron deficiency anemia, unspecified; E87.5 Hyperkalemia; Z79.899 Other long term (current) drug therapy
CPT/HCPCS: 36415; 80048; 80061; 82270; 82607; 82746; 83036; 83540; 83550; 84134; 84443; 86850; 86900; 86920; 93970; 96374; 99285; C9113; J1650; P9016

== ENCOUNTER 2019-08-04 11:45 | Inpatient (IN) | payer MEDICARE, OTHER ==
[~2019-08-04] VITALS: Ht 157.5 cm; Wt 72.1 kg
[2019-08-04 12:45] LABS: BASOPHILS % 1.1 % (0.0-2.0); EOSINOPHILS % 4.8 % (0.0-5.0); HEMATOCRIT. 26.4 % (36.0-48.0); HEMOGLOBIN. 9.1 g/dL (12.0-16.0); LYMPHOCYTES % 35.3 % (20.0-50.0); MEAN CORPUSCULAR VOLUME 104.7 fL (81.0-99.0); MEAN PLATELET VOLUME 9.7 fl (7.4-10.4); MONOCYTES % 8.2 % (2.0-8.0); NEUTROPHILS % 50.6 % (40.0-76.0); PLATELET 222 x1000/uL (130-400); RED BLOOD CELL COUNT 2.53 mill/uL (4.2-5.4); RED CELL DISTRIBUTION WIDTH 14.6 % (11.6-14.6)
[2019-08-04 12:52] LABS: CHLORIDE 109 mEq/L (98-107)
[2019-08-04 12:53] LABS: PROTHROMBIN TIME 10.5 sec (9.6-11.0)
[2019-08-04] MEDS ORDERED: SODIUM CHLORIDE 0.9% 1,000 ML IV ONE (14:33)
[2019-08-04] MEDS ORDERED: ACETAMINOPHEN 325MG TABLET PO PRN (16:00)
[2019-08-04] MEDS ORDERED: MAGNESIUM/ALUMINUM HYDROXIDE/SIMETHICONE 30ML UDC PO PRN (16:00)
[2019-08-04] MEDS ORDERED: ONDANSETRON HCL 4MG/2ML INJ IV PRN (16:00)
[2019-08-04] MEDS ORDERED: IPRATROPIUM/ALBUTEROL 0.5-3(2.5)MG/3ML NEB NEB PRN (16:00)
[2019-08-04] MEDS ORDERED: CLONIDINE 0.1MG TABLET PO PRN (16:00)
[2019-08-04] MEDS ORDERED: LORAZEPAM 0.5MG TABLET PO PRN (16:00)
[2019-08-04] MEDS: PANTOPRAZOLE SODIUM 40 MG/VIAL IV SCH (18:47)
[2019-08-04] MEDS: DEXT 5%/0.45% NACL 1000ML 1,000 ML IV SCH (20:11)
[2019-08-05] VITALS (8 sets, daily range): BP systolic 125–160; BP diastolic 49–71
[2019-08-05] MEDS ORDERED: XAR15 PO (03:42)
[2019-08-05] MEDS ORDERED: FAMO-135 PO (03:47)
[2019-08-05] MEDS ORDERED: ALLO100T PO (03:47)
[2019-08-05 06:56] LABS: BASOPHILS % 1.1 % (0.0-2.0); EOSINOPHILS % 5.5 % (0.0-5.0); HEMATOCRIT. 25.6 % (36.0-48.0); HEMOGLOBIN. 8.6 g/dL (12.0-16.0); LYMPHOCYTES % 30.2 % (20.0-50.0); MEAN CORPUSCULAR HEMOGLOBIN 35.6 pg (28.0-32.0); MEAN CORPUSCULAR VOLUME 105.9 fL (81.0-99.0); MEAN PLATELET VOLUME 9.7 fl (7.4-10.4); MONOCYTES % 10.9 % (2.0-8.0); NEUTROPHILS % 52.3 % (40.0-76.0); PLATELET 203 x1000/uL (130-400); RED BLOOD CELL COUNT 2.42 mill/uL (4.2-5.4); RED CELL DISTRIBUTION WIDTH 14.5 % (11.6-14.6)
[2019-08-05 07:39] LABS: CHLORIDE 115 mEq/L (98-107)
[2019-08-05] MEDS: LEVOTHYROXINE SODIUM 175MCG TABLET PO SCH (09:40)
[2019-08-05] MEDS: METOPROLOL TARTRATE 50MG TABLET PO SCH ×2 (09:42→21:16)
[2019-08-05] MEDS: PANTOPRAZOLE SODIUM 40 MG/VIAL IV SCH (09:43)
[2019-08-05] MEDS: ALLOPURINOL 100 MG TABLET PO SCH ×2 (09:46→17:18)
[2019-08-05] MEDS ORDERED: INFLUENZA VIRUS VACCINE(AFLURIA) 0.5ML SYR IM ONE (10:00)
[2019-08-05] MEDS: DEXT 5%/0.45% NACL 1000ML 1,000 ML IV SCH (13:12)
[2019-08-05] MEDS: MONTELUKAST SODIUM 10MG TABLET PO SCH (21:14)
[2019-08-06] VITALS: BP 146/66
[2019-08-06 04:00] VITALS: BP 144/55
[2019-08-06] MEDS: DEXT 5%/0.45% NACL 1000ML 1,000 ML IV SCH ×2 (05:07→21:24)
[2019-08-06 08:00] VITALS: BP 124/58
[2019-08-06] MEDS ORDERED: PANTOPRAZOLE SODIUM 40 MG/VIAL IV SCH (09:00)
[2019-08-06] MEDS: METOPROLOL TARTRATE 50MG TABLET PO SCH ×2 (09:42→21:24)
[2019-08-06] MEDS: ALLOPURINOL 100 MG TABLET PO SCH ×2 (09:42→17:39)
[2019-08-06] MEDS: LEVOTHYROXINE SODIUM 175MCG TABLET PO SCH (09:42)
[2019-08-06 12:00] VITALS: BP 123/66
[2019-08-06 13:15] LABS: BASOPHILS % 1.6 % (0.0-2.0); HEMATOCRIT. 31.5 % (36.0-48.0); HEMOGLOBIN. 10.4 g/dL (12.0-16.0); LYMPHOCYTES % 25.9 % (20.0-50.0); MEAN CORPUSCULAR HEMOGLOBIN 35.4 pg (28.0-32.0); MEAN CORPUSCULAR VOLUME 106.9 fL (81.0-99.0); MEAN PLATELET VOLUME 9.9 fl (7.4-10.4); MONOCYTES % 9.9 % (2.0-8.0); NEUTROPHILS % 54.6 % (40.0-76.0); PLATELET 206 x1000/uL (130-400); RED BLOOD CELL COUNT 2.95 mill/uL (4.2-5.4); RED CELL DISTRIBUTION WIDTH 14.6 % (11.6-14.6)
[2019-08-06 16:00] VITALS: BP 131/78
[2019-08-06 20:00] VITALS: BP 147/60
[2019-08-06] MEDS: MONTELUKAST SODIUM 10MG TABLET PO SCH (21:24)
[2019-08-07] VITALS: BP 136/58
[2019-08-07 04:00] VITALS: BP 128/58
[2019-08-07] MEDS: LEVOTHYROXINE SODIUM 175MCG TABLET PO SCH (06:41)
[2019-08-07 08:00] VITALS: BP 148/54
[2019-08-07 08:10] LABS: CHLORIDE 112 mEq/L (98-107)
[2019-08-07] MEDS: ALLOPURINOL 100 MG TABLET PO SCH ×2 (09:09→16:54)
[2019-08-07] MEDS: METOPROLOL TARTRATE 50MG TABLET PO SCH (09:10)
[2019-08-07 10:29] LABS: BASOPHILS % 1.2 % (0.0-2.0); EOSINOPHILS % 5.1 % (0.0-5.0); HEMATOCRIT. 27.6 % (36.0-48.0); HEMOGLOBIN. 9.3 g/dL (12.0-16.0); LYMPHOCYTES % 24.1 % (20.0-50.0); MEAN CORPUSCULAR HEMOGLOBIN 35.5 pg (28.0-32.0); MEAN PLATELET VOLUME 9.9 fl (7.4-10.4); NEUTROPHILS % 60.6 % (40.0-76.0); PLATELET 236 x1000/uL (130-400); RED BLOOD CELL COUNT 2.63 mill/uL (4.2-5.4); RED CELL DISTRIBUTION WIDTH 14.2 % (11.6-14.6)
[2019-08-07 12:00] VITALS: BP 115/73
[2019-08-07] MEDS ORDERED: LORAZEPAM 2MG/ML CPJ IV PRN (12:00)
[2019-08-07 16:00] VITALS: BP 120/63
[2019-08-07 16:10] VITALS: BP 115/73
[2019-08-07] MEDS ORDERED: RIVAROXABAN 20 MG TABLET PO SCH (17:00)
== END 2019-08-07 19:21 | DRG 377 ==
LOC: ER 13:04 → 7WST 14:33 → ENRESERV 23:40
PROVIDERS: ADMIT Hospitalist; ATTEND Hospitalist
DX: K92.2 Gastrointestinal hemorrhage, unspecified (principal); L89.154 Pressure ulcer of sacral region, stage 4; D62 Acute posthemorrhagic anemia; D68.59 Other primary thrombophilia; I48.91 Unspecified atrial fibrillation; I50.9 Heart failure, unspecified; I11.0 Hypertensive heart disease with heart failure; E78.00 Pure hypercholesterolemia, unspecified; K21.9 Gastro-esophageal reflux disease without esophagitis; M10.9 Gout, unspecified; J44.9 Chronic obstructive pulmonary disease, unspecified; E03.9 Hypothyroidism, unspecified; I25.10 Atherosclerotic heart disease of native coronary artery without angina pectoris; Z79.01 Long term (current) use of anticoagulants; Z79.899 Other long term (current) drug therapy
CPT/HCPCS: 36415; 71045; 83735; 90686; 93005; 93970; 99285; A6261; C9113; J7030

== ENCOUNTER 2019-12-24 09:32 | Inpatient (IN) | payer MEDICARE, MEDICAID ==
[~2019-12-24] VITALS: Ht 157.5 cm; Wt 54.9 kg
[~2019-12-24 09:32] MED LIST changes: +FAMO-135 PO; -RIVA20TA PO; +XAR15 PO
[2019-12-24 10:34] LABS: HEMATOCRIT. 34.9 % (36.0-48.0); HEMOGLOBIN. 11.3 g/dL (12.0-16.0); MEAN CORPUSCULAR HEMOGLOBIN 32.4 pg (28.0-32.0); MEAN CORPUSCULAR VOLUME 100.3 fL (81.0-99.0); MEAN PLATELET VOLUME 10.1 fl (7.4-10.4); PLATELET 206 x1000/uL (130-400); RED BLOOD CELL COUNT 3.48 mill/uL (4.2-5.4); RED CELL DISTRIBUTION WIDTH 15.9 % (11.6-14.6)
[2019-12-24 10:38] LABS: CHLORIDE 118 mEq/L (98-107)
[2019-12-24 11:14] LABS: ATYPICAL LYMPHOCYTES 1; PLATELET ESTIMATE NORMAL
[2019-12-24] MEDS ORDERED: LORAZEPAM 2MG/ML CPJ IV PRN (14:30)
[2019-12-24] MEDS ORDERED: DOCUSATE SODIUM 100MG CAPSULE PO PRN (14:30)
[2019-12-24] MEDS ORDERED: HYDROMORPHONE HCL/PF 2MG/ML CPJ IV PRN (14:30)
[2019-12-24] MEDS ORDERED: GUAIFENESIN 200MG/10ML SUGAR FREE UDC PO PRN (14:30)
[2019-12-24] MEDS ORDERED: MAGNESIUM/ALUMINUM HYDROXIDE/SIMETHICONE 30ML UDC PO PRN (14:30)
[2019-12-24] MEDS ORDERED: AZITHROMYCIN 500 MG in DEXT 5% WATER 250 ML IV NR (14:30)
[2019-12-24] MEDS ORDERED: ONDANSETRON HCL 4MG/2ML INJ IV PRN (14:30)
[2019-12-24] MEDS ORDERED: CLONIDINE 0.1MG TABLET PO PRN (14:30)
[2019-12-24] MEDS ORDERED: NA PHOS,M-B/NA PHOS,DI-BA ENEMA 118ML PR PRN (14:30)
[2019-12-24] MEDS ORDERED: CEFTRIAXONE 1 G PREMIX 50 ML IV SCH (14:30)
[2019-12-24] MEDS ORDERED: ACETAMINOPHEN 325MG TABLET PO PRN (14:30)
[2019-12-24 19:20] LABS: CLARITY URINE CLOUDY (CLEAR); COLOR URINE YELLOW (YELLOW); KETONES URINE NEGATIVE (NEGATIVE); LEUKOCYTE ESTERASE URINE NEGATIVE (NEGATIVE); NITRITE URINE NEGATIVE (NEGATIVE); OCCULT BLOOD URINE NEGATIVE (NEGATIVE); PROTEIN URINE 1+ (NEGATIVE); SPECIFIC GRAVITY URINE 1.019 (1.005-1.030)
[2019-12-24] MEDS: ASCORBIC ACID 500 MG TABLET PO SCH (21:00)
[2019-12-25 06:16] LABS: HEMATOCRIT. 30.7 % (36.0-48.0); HEMOGLOBIN. 10.4 g/dL (12.0-16.0); MEAN CORPUSCULAR HEMOGLOBIN 33.4 pg (28.0-32.0); MEAN CORPUSCULAR VOLUME 98.8 fL (81.0-99.0); MEAN PLATELET VOLUME 9.8 fl (7.4-10.4); PLATELET 223 x1000/uL (130-400); RED BLOOD CELL COUNT 3.11 mill/uL (4.2-5.4); RED CELL DISTRIBUTION WIDTH 15.8 % (11.6-14.6)
[2019-12-25 06:26] LABS: CHLORIDE 119 mEq/L (98-107)
[2019-12-25 08:08] LABS: BG BASE EXCESS -8.8 mmol/L (-2.0-2.0); BG CARBOXYHEMOGLOBIN 0.3 % (0.5-1.5); BG DEOXYHEMOGLOBIN 7.5 % (0.0-5.0); BG FRACTION INSPIRED OXYGEN 32; BG HCO3 ACT 14.6 mmol/L (22.0-26.0); BG METHEMOGLOBIN 0.2 % (0.0-1.5); BG OXYGEN SATURATION 92.5 % (92.0-98.5); BG PH 7.384 (7.350-7.450); BG PO2 63.8 mmHg (75.0-100.0); BG SAMPLE SITE RIGHT BRACHIAL; BG TOTAL HEMOGLOBIN 12.1 g/dL (12.0-18.0); BG VENT MODE NASAL CANNULA
[2019-12-25 08:47] LABS: PLATELET ESTIMATE NORMAL
[2019-12-25] MEDS ORDERED: ZINC SULFATE 220 MG ( 50 ) CAPSULE PO SCH (09:00)
[2019-12-25] MEDS: ASCORBIC ACID 500 MG TABLET PO SCH (09:00)
[2019-12-25] MEDS: AZITHROMYCIN 250 MG in DEXT 5% WATER 250 ML IV SCH (16:00)
[2019-12-25] MEDS ORDERED: CEFTRIAXONE 1 G PREMIX 50 ML IV SCH (16:15)
[2019-12-25] MEDS: ZINC SULFATE 220 MG ( 50 ) CAPSULE PO SCH (16:35)
[2019-12-25 23:35] VITALS: BP 118/54
[2019-12-26] MEDS ORDERED: NITR0.4T SL (00:39)
[2019-12-26] MEDS ORDERED: TOPUD PO (00:39)
[2019-12-26] MEDS ORDERED: FOLI-43 MT (00:39)
[2019-12-26] MEDS ORDERED: RIVA20TA PO (00:39)
[2019-12-26] MEDS ORDERED: ACET-2708 MT (00:39)
[2019-12-26] MEDS ORDERED: DOCU100T MT (00:39)
[2019-12-26] MEDS ORDERED: VITAMIN B12 INJ IM (00:39)
[2019-12-26] MEDS ORDERED: MELA3TAB71 MT (00:39)
[2019-12-26] MEDS ORDERED: TOPUD MT (00:39)
[2019-12-26] MEDS ORDERED: IPRA3AMP9 HHN (00:39)
[2019-12-26] MEDS ORDERED: CLON0.1T PO (00:39)
[2019-12-26] MEDS ORDERED: FERR325T6 PO (00:39)
[2019-12-26] MEDS: CEFTRIAXONE 1 G PREMIX 50 ML IV SCH ×2 (02:06→22:18)
[2019-12-26 04:00] VITALS: BP 123/60
[2019-12-26 08:00] VITALS: BP 146/53
[2019-12-26] MEDS: ASCORBIC ACID 500 MG TABLET PO SCH ×3 (09:37→22:17)
[2019-12-26] MEDS: ZINC SULFATE 220 MG ( 50 ) CAPSULE PO SCH (09:37)
[2019-12-26] MEDS: ENOXAPARIN 30MG/0.3ML SYR SUBCUT SCH (09:38)
[2019-12-26] MEDS ORDERED: FUROSEMIDE 20MG/2ML VIAL IVP NR (11:45)
[2019-12-26 12:00] VITALS: BP 131/52
[2019-12-26] MEDS ORDERED: ALBUMIN HUMAN 25GM/100ML (25%) IV NR (13:00)
[2019-12-26 16:00] VITALS: BP 102/51
[2019-12-26] MEDS: AZITHROMYCIN 250 MG in DEXT 5% WATER 250 ML IV SCH (17:01)
[2019-12-26 17:04] LABS: COVID-19 PCR RNA DETECTED
[2019-12-26 17:07] LABS: COVID-19 PCR RNA DETECTED
[2019-12-26 20:00] VITALS: BP 79/38
[2019-12-26 20:30] VITALS: BP 106/70
[2019-12-27] VITALS (7 sets, daily range): BP systolic 75–138; BP diastolic 32–63
[2019-12-27 05:54] LABS: CHLORIDE 120 mEq/L (98-107)
[2019-12-27 06:33] LABS: HEMATOCRIT. 32.2 % (36.0-48.0); HEMOGLOBIN. 10.6 g/dL (12.0-16.0); MEAN CORPUSCULAR VOLUME 99.8 fL (81.0-99.0); MEAN PLATELET VOLUME 10.2 fl (7.4-10.4); PLATELET 256 x1000/uL (130-400); RED BLOOD CELL COUNT 3.23 mill/uL (4.2-5.4); RED CELL DISTRIBUTION WIDTH 16.4 % (11.6-14.6)
[2019-12-27] MEDS: ENOXAPARIN 30MG/0.3ML SYR SUBCUT SCH (09:21)
[2019-12-27] MEDS: ASCORBIC ACID 500 MG TABLET PO SCH ×2 (09:21→21:39)
[2019-12-27] MEDS: ZINC SULFATE 220 MG ( 50 ) CAPSULE PO SCH (09:21)
[2019-12-27 11:26] LABS: PLATELET ESTIMATE NORMAL
[2019-12-27] MEDS: AZITHROMYCIN 250 MG in DEXT 5% WATER 250 ML IV SCH ×2 (14:33→15:45)
[2019-12-27] MEDS: CEFTRIAXONE 1 G PREMIX 50 ML IV SCH ×2 (21:39→22:00)
[2019-12-28 00:26] VITALS: BP 122/48
[2019-12-28 04:00] VITALS: BP 127/41
[2019-12-28 08:00] VITALS: BP 113/60
[2019-12-28] MEDS ORDERED: LIDOCAINE HCL 1% 20ML VIAL (Pyxis) INJ ONE (08:21)
[2019-12-28] MEDS: ENOXAPARIN 30MG/0.3ML SYR SUBCUT SCH ×2 (09:00→16:43)
[2019-12-28] MEDS: ASCORBIC ACID 500 MG TABLET PO SCH ×2 (09:20→21:28)
[2019-12-28] MEDS: ZINC SULFATE 220 MG ( 50 ) CAPSULE PO SCH (09:20)
[2019-12-28 12:00] VITALS: BP 118/75
[2019-12-28 16:00] VITALS: BP 159/74
[2019-12-28] MEDS: AZITHROMYCIN 250 MG in DEXT 5% WATER 250 ML IV SCH (16:42)
[2019-12-28 20:00] VITALS: BP 134/62
[2019-12-28] MEDS: CEFTRIAXONE 1 G PREMIX 50 ML IV SCH (21:28)
[2019-12-29] VITALS: BP 132/63
[2019-12-29 04:00] VITALS: BP 146/90
[2019-12-29 08:00] VITALS: BP 124/65
[2019-12-29] MEDS: ASCORBIC ACID 500 MG TABLET PO SCH ×2 (08:24→21:05)
[2019-12-29] MEDS: ZINC SULFATE 220 MG ( 50 ) CAPSULE PO SCH (08:24)
[2019-12-29] MEDS: ENOXAPARIN 30MG/0.3ML SYR SUBCUT SCH (08:25)
[2019-12-29 12:00] VITALS: BP 124/83
[2019-12-29 16:00] VITALS: BP 151/78
[2019-12-29 20:00] VITALS: BP 106/52
[2019-12-29] MEDS: CEFTRIAXONE 1 G PREMIX 50 ML IV SCH (21:05)
[2019-12-30] VITALS (8 sets, daily range): BP systolic 90–121; BP diastolic 47–59
[2019-12-30] MEDS: ENOXAPARIN 30MG/0.3ML SYR SUBCUT SCH (08:00)
[2019-12-30] MEDS: ZINC SULFATE 220 MG ( 50 ) CAPSULE PO SCH (08:00)
[2019-12-30] MEDS: ASCORBIC ACID 500 MG TABLET PO SCH ×2 (08:00→21:27)
[2019-12-30] MEDS: CEFTRIAXONE 1 G PREMIX 50 ML IV SCH (21:27)
[2019-12-31] VITALS (7 sets, daily range): BP systolic 105–125; BP diastolic 47–70
[2019-12-31] MEDS: ASCORBIC ACID 500 MG TABLET PO SCH ×2 (10:55→21:58)
[2019-12-31] MEDS: ZINC SULFATE 220 MG ( 50 ) CAPSULE PO SCH (10:55)
[2019-12-31] MEDS: ENOXAPARIN 30MG/0.3ML SYR SUBCUT SCH (10:56)
[2019-12-31] MEDS: CEFTRIAXONE 1 G PREMIX 50 ML IV SCH (21:58)
[2020-01-01] VITALS: BP 130/56
[2020-01-01 04:00] VITALS: BP 112/61
[2020-01-01 08:00] VITALS: BP 134/85
[2020-01-01] MEDS: ASCORBIC ACID 500 MG TABLET PO SCH ×2 (09:18→21:17)
[2020-01-01] MEDS: ENOXAPARIN 30MG/0.3ML SYR SUBCUT SCH (09:18)
[2020-01-01] MEDS: ZINC SULFATE 220 MG ( 50 ) CAPSULE PO SCH (09:18)
[2020-01-01 12:00] VITALS: BP 123/52
[2020-01-01 16:00] VITALS: BP 124/75
[2020-01-01 20:00] VITALS: BP 133/63
[2020-01-02] VITALS (7 sets, daily range): BP systolic 91–135; BP diastolic 51–62
[2020-01-02] MEDS: ZINC SULFATE 220 MG ( 50 ) CAPSULE PO SCH (09:23)
[2020-01-02] MEDS: ASCORBIC ACID 500 MG TABLET PO SCH ×2 (09:23→23:03)
[2020-01-02] MEDS: ENOXAPARIN 30MG/0.3ML SYR SUBCUT SCH (11:20)
[2020-01-03] VITALS: BP 127/66
[2020-01-03 04:00] VITALS: BP 125/60
[2020-01-03 08:00] VITALS: BP 142/59
[2020-01-03] MEDS: ASCORBIC ACID 500 MG TABLET PO SCH ×2 (08:16→21:36)
[2020-01-03] MEDS: ZINC SULFATE 220 MG ( 50 ) CAPSULE PO SCH (08:16)
[2020-01-03] MEDS: ENOXAPARIN 30MG/0.3ML SYR SUBCUT SCH (08:16)
[2020-01-03 12:00] VITALS: BP 105/58
[2020-01-03 16:04] VITALS: BP 105/58
[2020-01-03 20:00] VITALS: BP 112/56
[2020-01-04] VITALS: BP 128/43
[2020-01-04 04:00] VITALS: BP 132/63
[2020-01-04 08:00] VITALS: BP 130/57
[2020-01-04] MEDS: ASCORBIC ACID 500 MG TABLET PO SCH ×2 (08:07→20:58)
[2020-01-04] MEDS: ZINC SULFATE 220 MG ( 50 ) CAPSULE PO SCH (08:07)
[2020-01-04] MEDS: ENOXAPARIN 30MG/0.3ML SYR SUBCUT SCH (08:07)
[2020-01-04 09:59] LABS: BASOPHILS % 0.7 % (0.0-2.0); EOSINOPHILS % 3.6 % (0.0-5.0); HEMATOCRIT. 33.7 % (36.0-48.0); HEMOGLOBIN. 11.1 g/dL (12.0-16.0); LYMPHOCYTES % 14.6 % (20.0-50.0); MEAN CORPUSCULAR HEMOGLOBIN 32.7 pg (28.0-32.0); MEAN CORPUSCULAR VOLUME 99.9 fL (81.0-99.0); MEAN PLATELET VOLUME 10.7 fl (7.4-10.4); MONOCYTES % 5.9 % (2.0-8.0); NEUTROPHILS % 75.2 % (40.0-76.0); PLATELET 212 x1000/uL (130-400); RED BLOOD CELL COUNT 3.38 mill/uL (4.2-5.4)
[2020-01-04 12:00] VITALS: BP 121/64
[2020-01-04 16:00] VITALS: BP 113/63
[2020-01-04] MEDS: SODIUM CHLORIDE 45ML SPRAY NS SCH ×2 (16:24→23:25)
[2020-01-04 20:00] VITALS: BP 107/40
[2020-01-05] VITALS (7 sets, daily range): BP systolic 96–114; BP diastolic 31–59
[2020-01-05] MEDS: SODIUM CHLORIDE 45ML SPRAY NS SCH ×4 (05:45→23:41)
[2020-01-05] MEDS: ASCORBIC ACID 500 MG TABLET PO SCH ×2 (08:25→21:29)
[2020-01-05] MEDS: ZINC SULFATE 220 MG ( 50 ) CAPSULE PO SCH (08:25)
[2020-01-05] MEDS: ENOXAPARIN 30MG/0.3ML SYR SUBCUT SCH (10:25)
[2020-01-06] VITALS (7 sets, daily range): BP systolic 90–116; BP diastolic 29–62
[2020-01-06] MEDS: SODIUM CHLORIDE 45ML SPRAY NS SCH ×3 (05:58→17:21)
[2020-01-06] MEDS: ZINC SULFATE 220 MG ( 50 ) CAPSULE PO SCH (09:57)
[2020-01-06] MEDS: ASCORBIC ACID 500 MG TABLET PO SCH ×2 (09:57→21:20)
[2020-01-06] MEDS: ENOXAPARIN 30MG/0.3ML SYR SUBCUT SCH (14:05)
[2020-01-07] VITALS (7 sets, daily range): BP systolic 96–126; BP diastolic 33–49
[2020-01-07] MEDS: SODIUM CHLORIDE 45ML SPRAY NS SCH ×4 (02:10→18:06)
[2020-01-07] MEDS: ASCORBIC ACID 500 MG TABLET PO SCH ×2 (08:26→20:38)
[2020-01-07] MEDS: ZINC SULFATE 220 MG ( 50 ) CAPSULE PO SCH (08:26)
[2020-01-07] MEDS: ENOXAPARIN 30MG/0.3ML SYR SUBCUT SCH (08:26)
[2020-01-08] MEDS: SODIUM CHLORIDE 45ML SPRAY NS SCH ×4 (00:47→18:00)
[2020-01-08 04:00] VITALS: BP 111/54
[2020-01-08 08:00] VITALS: BP 110/50
[2020-01-08] MEDS: ASCORBIC ACID 500 MG TABLET PO SCH ×2 (10:03→21:31)
[2020-01-08] MEDS: ENOXAPARIN 30MG/0.3ML SYR SUBCUT SCH (10:03)
[2020-01-08] MEDS: ZINC SULFATE 220 MG ( 50 ) CAPSULE PO SCH (10:03)
[2020-01-08 12:00] VITALS: BP 109/64
[2020-01-08 16:00] VITALS: BP 103/50
[2020-01-08 20:00] VITALS: BP 99/57
[2020-01-09] VITALS: BP 106/59
[2020-01-09] MEDS: SODIUM CHLORIDE 45ML SPRAY NS SCH ×4 (00:04→17:09)
[2020-01-09 04:00] VITALS: BP 117/53
[2020-01-09 08:00] VITALS: BP 95/50
[2020-01-09] MEDS: ZINC SULFATE 220 MG ( 50 ) CAPSULE PO SCH (08:23)
[2020-01-09] MEDS: ENOXAPARIN 30MG/0.3ML SYR SUBCUT SCH (08:23)
[2020-01-09] MEDS: ASCORBIC ACID 500 MG TABLET PO SCH ×2 (08:23→21:17)
[2020-01-09 20:00] VITALS: BP 127/58
[2020-01-09 23:55] VITALS: BP 97/73
[2020-01-10] MEDS: SODIUM CHLORIDE 45ML SPRAY NS SCH ×4 (04:17→18:46)
[2020-01-10 04:28] VITALS: BP 129/62
[2020-01-10 08:00] VITALS: BP 125/47
[2020-01-10] MEDS: ZINC SULFATE 220 MG ( 50 ) CAPSULE PO SCH (09:00)
[2020-01-10] MEDS: ENOXAPARIN 30MG/0.3ML SYR SUBCUT SCH (09:00)
[2020-01-10] MEDS: ASCORBIC ACID 500 MG TABLET PO SCH ×2 (09:00→21:55)
[2020-01-10 12:05] VITALS: BP 124/67
[2020-01-10 16:05] VITALS: BP 107/42
[2020-01-10 20:00] VITALS: BP 124/40
[2020-01-11] VITALS: BP 113/85
[2020-01-11] MEDS: SODIUM CHLORIDE 45ML SPRAY NS SCH ×4 (00:54→18:01)
[2020-01-11 04:00] VITALS: BP 109/85
[2020-01-11 08:00] VITALS: BP 113/64
[2020-01-11] MEDS: ZINC SULFATE 220 MG ( 50 ) CAPSULE PO SCH (10:15)
[2020-01-11] MEDS: ASCORBIC ACID 500 MG TABLET PO SCH ×2 (10:15→21:11)
[2020-01-11] MEDS: ENOXAPARIN 30MG/0.3ML SYR SUBCUT SCH (10:15)
[2020-01-11 12:00] VITALS: BP 95/41
[2020-01-11 16:00] VITALS: BP 100/61
[2020-01-11 20:00] VITALS: BP 140/53
[2020-01-12] VITALS (9 sets, daily range): BP systolic 95–112; BP diastolic 40–59
[2020-01-12] MEDS: SODIUM CHLORIDE 45ML SPRAY NS SCH ×5 (00:45→23:39)
[2020-01-12] MEDS: ZINC SULFATE 220 MG ( 50 ) CAPSULE PO SCH (08:44)
[2020-01-12] MEDS: ASCORBIC ACID 500 MG TABLET PO SCH ×2 (08:44→20:44)
[2020-01-12] MEDS: ENOXAPARIN 30MG/0.3ML SYR SUBCUT SCH (08:45)
[2020-01-13] VITALS: BP 101/48
[2020-01-13 04:00] VITALS: BP 99/51
[2020-01-13] MEDS: SODIUM CHLORIDE 45ML SPRAY NS SCH ×3 (05:36→18:00)
[2020-01-13 07:58] LABS: HEMATOCRIT 30.3 % (36.0-48.0); HEMOGLOBIN 10.1 g/dL (12.0-16.0); MEAN CORPUSCULAR HEMOGLOBIN 33.3 pg (28.0-32.0); MEAN CORPUSCULAR VOLUME 99.5 fL (81.0-99.0); PLATELET 164 x1000/uL (130-400); RED BLOOD CELL COUNT 3.04 mill/uL (4.2-5.4); RED CELL DISTRIBUTION WIDTH 16.6 % (11.6-14.6)
[2020-01-13 08:00] VITALS: BP 107/44
[2020-01-13] MEDS: ZINC SULFATE 220 MG ( 50 ) CAPSULE PO SCH (08:20)
[2020-01-13] MEDS: ASCORBIC ACID 500 MG TABLET PO SCH ×2 (08:20→19:59)
[2020-01-13] MEDS: ENOXAPARIN 30MG/0.3ML SYR SUBCUT SCH (08:21)
[2020-01-13 12:00] VITALS: BP 124/49
[2020-01-13 16:00] VITALS: BP 125/80
[2020-01-13 18:49] VITALS: BP 125/80
== END 2020-01-13 21:08 | DRG 871 ==
LOC: ER 09:32 → 7EST 12-25 13:23 → ENRESERV 12-25 21:51
PROVIDERS: ADMIT Hospitalist; ATTEND Hospitalist
PROC: 05HY33Z Insertion of Infusion Device into Upper Vein, Percutaneous Approach (ICD-10-PCS; principal; 2019-12-28)
PROC: B54MZZA Ultrasonography of Right Upper Extremity Veins, Guidance (ICD-10-PCS; 2019-12-28)
DX: A41.89 Other specified sepsis (principal); U07.1 COVID-19; J96.01 Acute respiratory failure with hypoxia; J12.89 Other viral pneumonia; I50.32 Chronic diastolic (congestive) heart failure; J44.0 Chronic obstructive pulmonary disease with (acute) lower respiratory infection; D68.59 Other primary thrombophilia; I48.0 Paroxysmal atrial fibrillation; M10.9 Gout, unspecified; D64.9 Anemia, unspecified; D72.810 Lymphocytopenia; E03.9 Hypothyroidism, unspecified; E78.00 Pure hypercholesterolemia, unspecified; I11.0 Hypertensive heart disease with heart failure; K21.9 Gastro-esophageal reflux disease without esophagitis; Z66 Do not resuscitate; N28.9 Disorder of kidney and ureter, unspecified; Z95.0 Presence of cardiac pacemaker
CPT/HCPCS: 36415; 36600; 71045; 76937; 80053; 81003; 82375; 82805; 83880; 84484; 85025; 85027; 87635; 93005; 96365; 96366; 96367; 99285; C1725; J0456; J0696; J1650; J1940; J2405; J3490; J7060; P9047

== ENCOUNTER 2020-02-22 17:00 | Inpatient (IN) | payer MEDICARE, MEDICAID ==
[~2020-02-22] VITALS: Ht 154.9 cm; Wt 59.9 kg
[~2020-02-22 17:00] MED LIST changes: +ACET-2708 MT; +CLON0.1T PO; +DOCU100T MT; +FERR325T6 PO; +FOLI-43 MT; -FURO-152 PO; +IPRA3AMP9 HHN; +MELA3TAB71 MT; +NITR0.4T SL; +RIVA20TA PO; +TOPUD MT; +TOPUD PO; +VITAMIN B12 INJ IM; -XAR15 PO
[2020-02-22] MEDS ORDERED: SODIUM CHLORIDE 0.9% 1,000 ML IV ONE (19:30)
[2020-02-22 19:50] LABS: BASOPHILS % 0.3 % (0.0-2.0); EOSINOPHILS % 0.7 % (0.0-5.0); HEMATOCRIT. 26.3 % (36.0-48.0); HEMOGLOBIN. 8.8 g/dL (12.0-16.0); LYMPHOCYTES % 8.6 % (20.0-50.0); MEAN CORPUSCULAR HEMOGLOBIN 34.6 pg (28.0-32.0); MEAN CORPUSCULAR VOLUME 103.8 fL (81.0-99.0); MEAN PLATELET VOLUME 10.3 fl (7.4-10.4); MONOCYTES % 3.4 % (2.0-8.0); PLATELET 189 x1000/uL (130-400); RED BLOOD CELL COUNT 2.53 mill/uL (4.2-5.4); RED CELL DISTRIBUTION WIDTH 19.4 % (11.6-14.6)
[2020-02-22] MEDS ORDERED: SODIUM CHLORIDE 0.9% 1000ML BAG (SEPSIS BOLUS) IV ONE (21:30)
[2020-02-22] MEDS ORDERED: PIPERACILLIN/TAZ 3.375G PREMIX 50 ML IV ONE (21:30)
[2020-02-22] MEDS ORDERED: VANCOMYCIN 1 G PREMIX 200 ML IV ONE (21:30)
[2020-02-22 23:08] LABS: CHLORIDE 106 mEq/L (98-107)
[2020-02-22 23:14] LABS: CLARITY URINE CLOUDY (CLEAR); COLOR URINE YELLOW (YELLOW); KETONES URINE NEGATIVE (NEGATIVE); LEUKOCYTE ESTERASE URINE TRACE (NEGATIVE); NITRITE URINE NEGATIVE (NEGATIVE); OCCULT BLOOD URINE TRACE (NEGATIVE); PROTEIN URINE TRACE (NEGATIVE); SPECIFIC GRAVITY URINE 1.017 (1.005-1.030); UROBILINOGEN URINE 0.2 E.U./dL (0.2-1.0)
[2020-02-22] MEDS ORDERED: PIPERACILLIN/TAZ 3.375G PREMIX 50 ML IV SCH (23:15)
[2020-02-22] MEDS ORDERED: LORAZEPAM 2MG/ML CPJ IV PRN (23:15)
[2020-02-22] MEDS ORDERED: ONDANSETRON HCL 4MG/2ML INJ IV PRN (23:15)
[2020-02-22] MEDS ORDERED: CLONIDINE 0.1MG TABLET PO PRN (23:15)
[2020-02-22] MEDS ORDERED: ACETAMINOPHEN 650MG SUPP PR PRN (23:15)
[2020-02-22] MEDS ORDERED: MAGNESIUM/ALUMINUM HYDROXIDE/SIMETHICONE 30ML UDC PO PRN (23:15)
[2020-02-22] MEDS ORDERED: ENOXAPARIN 40MG/0.4ML SYR SUBCUT SCH (23:15)
[2020-02-22] MEDS ORDERED: ASPIRIN 325MG EC TABLET PO ONE (23:30)
[2020-02-23] VITALS (7 sets, daily range): BP systolic 77–128; BP diastolic 43–95
[2020-02-23] MEDS: VANCOMYCIN 1 G PREMIX 200 ML IV SCH (02:22)
[2020-02-23] MEDS: DEXT 5%/0.45% NACL 1000ML 1,000 ML IV SCH ×2 (05:57→12:26)
[2020-02-23] MEDS ORDERED: ENOXAPARIN 30MG/0.3ML SYR SUBCUT SCH (09:00)
[2020-02-23] MEDS ORDERED: SODIUM CHLORIDE 0.9% 250 ML IV NR ×2 (09:16→10:30)
[2020-02-23 09:44] LABS: CHLORIDE 109 mEq/L (98-107)
[2020-02-23 09:51] LABS: MEAN CORPUSCULAR HEMOGLOBIN 34.8 pg (28.0-32.0); MEAN CORPUSCULAR VOLUME 103.4 fL (81.0-99.0); MEAN PLATELET VOLUME 10.3 fl (7.4-10.4); PLATELET 138 x1000/uL (130-400); RED BLOOD CELL COUNT 2.01 mill/uL (4.2-5.4); RED CELL DISTRIBUTION WIDTH 18.7 % (11.6-14.6)
[2020-02-23 09:57] LABS: HEMATOCRIT. 20.8 % (36.0-48.0)
[2020-02-23] MEDS: POTASSIUM CHLORIDE 20MEQ TABLET SR PO SCH ×2 (10:15→10:38)
[2020-02-23] MEDS: PIPERACILLIN/TAZOBACTAM 2.25 G in DEXTROSE 5% WATER 50 ML IV SCH ×2 (10:38→22:01)
[2020-02-23 10:56] LABS: PLATELET ESTIMATE NORMAL
[2020-02-23] MEDS ORDERED: SODIUM CHLORIDE 0.9% 500 ML IV NR (11:45)
[2020-02-23] MEDS ORDERED: POTASSIUM CHLORIDE INJ 40 MEQ in DEXT 5% WATER 250 ML IV NR (14:00)
[2020-02-24 00:18] VITALS: BP 135/54
[2020-02-24] MEDS: DEXT 5%/0.45% NACL 1000ML 1,000 ML IV SCH ×2 (01:46→15:06)
[2020-02-24 04:00] VITALS: BP 120/58
[2020-02-24 08:00] VITALS: BP 148/89
[2020-02-24] MEDS: PIPERACILLIN/TAZOBACTAM 2.25 G in DEXTROSE 5% WATER 50 ML IV SCH ×2 (08:00→15:00)
[2020-02-24 10:44] LABS: CHLORIDE 110 mEq/L (98-107)
[2020-02-24 10:50] LABS: BASOPHILS % 0.4 % (0.0-2.0); EOSINOPHILS % 0.5 % (0.0-5.0); HEMATOCRIT. 21.5 % (36.0-48.0); HEMOGLOBIN. 7.3 g/dL (12.0-16.0); LYMPHOCYTES % 10.8 % (20.0-50.0); MEAN CORPUSCULAR HEMOGLOBIN 34.8 pg (28.0-32.0); MEAN CORPUSCULAR VOLUME 102.9 fL (81.0-99.0); MEAN PLATELET VOLUME 10.3 fl (7.4-10.4); MONOCYTES % 4.5 % (2.0-8.0); NEUTROPHILS % 83.8 % (40.0-76.0); PLATELET 163 x1000/uL (130-400); RED BLOOD CELL COUNT 2.09 mill/uL (4.2-5.4); RED CELL DISTRIBUTION WIDTH 18.9 % (11.6-14.6)
[2020-02-24 12:00] VITALS: BP 118/33
[2020-02-24] MEDS: VANCOMYCIN 1 G PREMIX 200 ML IV SCH (12:03)
[2020-02-24] MEDS ORDERED: DEXAMETHASONE 10 MG/ML VIAL IV SCH (12:30)
[2020-02-24 16:00] VITALS: BP 120/86
[2020-02-24 20:00] VITALS: BP 146/56
[2020-02-25] VITALS: BP 124/70
[2020-02-25 04:00] VITALS: BP 128/65
[2020-02-25 08:00] VITALS: BP 137/65
[2020-02-25 12:00] VITALS: BP 150/64
[2020-02-25 16:00] VITALS: BP 134/68
[2020-02-25] MEDS: DEXT 5%/0.45% NACL 1000ML 1,000 ML IV SCH (17:46)
[2020-02-25 20:00] VITALS: BP 150/65
[2020-02-26] VITALS: BP 115/57
[2020-02-26] MEDS: CEFTRIAXONE 2 G in DEXTROSE 5% WATER 50 ML IV SCH ×2
[2020-02-26 04:00] VITALS: BP 124/77
[2020-02-26 08:00] VITALS: BP 142/64
[2020-02-26 08:12] LABS: HEMATOCRIT. 29.7 % (36.0-48.0); HEMOGLOBIN. 9.8 g/dL (12.0-16.0); MEAN CORPUSCULAR VOLUME 106.4 fL (81.0-99.0); MEAN PLATELET VOLUME 10.6 fl (7.4-10.4); PLATELET 166 x1000/uL (130-400); RED CELL DISTRIBUTION WIDTH 20.2 % (11.6-14.6)
[2020-02-26] MEDS: DEXT 5%/0.45% NACL 1000ML 1,000 ML IV SCH ×2 (08:28→20:26)
[2020-02-26] MEDS: DEXAMETHASONE 2MG TABLET PO SCH (08:28)
[2020-02-26] MEDS ORDERED: DEXAMETHASONE 1MG TABLET PO SCH (09:00)
[2020-02-26 12:00] VITALS: BP 141/84
[2020-02-26] MEDS: MIDODRINE HCL 2.5MG TABLET PO SCH ×2 (12:30→18:29)
[2020-02-26 16:00] VITALS: BP_SYST 148; BP_SYST 70; BP_DIAS 32; BP_DIAS 58
[2020-02-26 20:00] VITALS: BP 92/65
[2020-02-26 20:51] LABS: PLATELET ESTIMATE NORMAL
[2020-02-27] VITALS: BP 128/77
[2020-02-27] MEDS: CEFTRIAXONE 2 G in DEXTROSE 5% WATER 50 ML IV SCH ×2 (00:55→23:47)
[2020-02-27 04:00] VITALS: BP 132/67
[2020-02-27 08:00] VITALS: BP 141/83
[2020-02-27] MEDS: DEXAMETHASONE 2MG TABLET PO SCH (09:16)
[2020-02-27] MEDS: MIDODRINE HCL 2.5MG TABLET PO SCH ×3 (09:16→16:46)
[2020-02-27 12:10] VITALS: BP 148/67
[2020-02-27] MEDS: DEXT 5%/0.45% NACL 1000ML 1,000 ML IV SCH ×2 (15:17→23:46)
[2020-02-27 16:00] VITALS: BP 158/86
[2020-02-27 20:00] VITALS: BP 149/69
[2020-02-28] VITALS: BP 166/79
[2020-02-28 00:25] VITALS: BP 145/59
[2020-02-28 08:00] VITALS: BP 155/74
[2020-02-28] MEDS: DEXAMETHASONE 2MG TABLET PO SCH (09:03)
[2020-02-28] MEDS: MIDODRINE HCL 2.5MG TABLET PO SCH ×3 (09:03→16:55)
[2020-02-28 11:54] VITALS: BP 92/46
[2020-02-28] MEDS: DEXT 5%/0.45% NACL 1000ML 1,000 ML IV SCH (12:20)
[2020-02-28] MEDS: ALBUTEROL 6.7GM HFA INHALER ORI SCH ×2 (13:27→17:19)
[2020-02-28 13:41] VITALS: BP 121/69
[2020-02-28 16:00] VITALS: BP 121/69
[2020-03-02] MEDS ORDERED: DEXAMETHASONE 1MG TABLET PO SCH (09:00)
[2020-03-02] MEDS ORDERED: DEXAMETHASONE 4MG TABLET PO SCH (09:00)
== END 2020-02-28 18:08 | DRG 871 ==
LOC: ER 17:00 → 7WST 22:40 → ENRESERV 22:57
PROVIDERS: ADMIT Hospitalist; ATTEND Hospitalist
PROC: 0DH67UZ Insertion of Feeding Device into Stomach, Via Natural or Artificial Opening (ICD-10-PCS; principal; 2020-02-25)
DX: A40.1 Sepsis due to streptococcus, group B (principal); U07.1 COVID-19; E43 Unspecified severe protein-calorie malnutrition; J96.01 Acute respiratory failure with hypoxia; J12.89 Other viral pneumonia; I50.32 Chronic diastolic (congestive) heart failure; I42.9 Cardiomyopathy, unspecified; N39.0 Urinary tract infection, site not specified; I13.0 Hypertensive heart and chronic kidney disease with heart failure and stage 1 through stage 4 chronic kidney disease, or unspecified chronic kidney disease; J44.0 Chronic obstructive pulmonary disease with (acute) lower respiratory infection; R62.7 Adult failure to thrive; F03.90 Unspecified dementia, unspecified severity, without behavioral disturbance, psychotic disturbance, mood disturbance, and anxiety; E78.00 Pure hypercholesterolemia, unspecified; E03.9 Hypothyroidism, unspecified; D63.8 Anemia in other chronic diseases classified elsewhere; I48.0 Paroxysmal atrial fibrillation; J44.9 Chronic obstructive pulmonary disease, unspecified; K21.9 Gastro-esophageal reflux disease without esophagitis; Z66 Do not resuscitate; N18.9 Chronic kidney disease, unspecified; D72.810 Lymphocytopenia; M10.9 Gout, unspecified; Z95.0 Presence of cardiac pacemaker; Z68.24 Body mass index [BMI] 24.0-24.9, adult; Z79.899 Other long term (current) drug therapy
CPT/HCPCS: 36415; 71045; 80048; 80053; 80202; 81003; 83605; 83735; 84484; 85025; 86850; 86900; 87077; 87186; 87635; 93005; 96365; 99285; J0696; J1100; J1650; J2060; J2543; J3370; J3480; J7030; J7060; J8540; U0003-CS